=== PATIENT | female | born 1980 | race Caucasian/White ===

== ENCOUNTER 2020-02-26 08:44 | Outpatient (REF) | payer OTHER, SELFPAY ==
--- NOTE | 2020-02-26 08:47 | MM_ITS ---
EXAMINATION: MM BREAST DIAGNOSTIC DIGITAL BREAST TOMOSYNTHESIS, BILATERAL CLINICAL INFORMATION: Screening right breast study. Left breast pain. The lifetime risk of breast cancer based on the Tyrer-Cuzick Model is 11.2%. COMPARISON: Mammography: 06/07/2010 TECHNIQUE: Digital breast tomosynthesis is performed in both the craniocaudal and mediolateral oblique views along with computer-aided detection (CAD). Synthesized 2D images are generated from the tomosynthesis. FINDINGS: The breasts are extremely dense, which lowers the sensitivity of mammography (ACR BI-RADS breast composition Category d). Within the deep central region of the left breast on craniocaudal view, there is a circumscribed density measuring approximately 7 mm in diameter 6 cm from the nipple. Within the right breast just superior to nipple line, there is a 7 mm circumscribed density approximately 4 cm from the nipple. On craniocaudal view, 2 densities are noted, 1 centrally approximately 3 cm from the nipple and the other medially approximately 5 cm from nipple. Results are provided to the patient at time of visit by the technologist. MM/MM tomosynthesis diagnostic BI IMPRESSION: 1. Bilateral breast densities for which further evaluation with spot compression views recommended. 2. Ultrasound has been scheduled already for pain in the left breast for which the patient will be returning as well. ASSESSMENT: BI-RADS 0: Incomplete - Need Additional Imaging Evaluation RECOMMENDATION: Bilateral spot compression views and ultrasound as needed. This patient's information was entered into a reminder system with a target due date for their next mammogram.
== END 2020-02-26 08:45 | disposition home or self-care (01) ==
LOC: HO.MAMMO 08:44
PROVIDERS: Visit Provider Internal Medicine
DX: N64.4 Mastodynia (principal); Z12.39 Encounter for other screening for malignant neoplasm of breast
CPT/HCPCS: 77062; 77066

== ENCOUNTER 2020-03-03 12:42 | Outpatient (REF) | payer OTHER, SELFPAY ==
--- NOTE | 2020-03-03 | US_ITS ---
EXAMINATION: US DIAGNOSTIC ULTRASOUND BREAST, RIGHT CLINICAL INFORMATION: Two densities on mammography. COMPARISON: 02/26/2020 and studies dating back to 06/07/2010. TECHNIQUE: Ultrasound of the breast is performed with real-time colbert scale imaging and color Doppler. FINDINGS: Right breast ultrasound demonstrates a mildly lobulated mainly complex cyst measuring 7 x 6 x 8 mm in size 12 o'clock position 4 cm from the nipple. No distal sound shadowing identified. There is distal sound enhancement. At the 5 o'clock position approximately 5 cm from nipple there is what appears to be either complex cyst or a few adjacent cysts measuring 4 x 4 x 5 mm in size with some increased through sound transmission and no distal sound shadowing. A few other scattered small cysts are present. Results are discussed with the patient at time of visit. US/US breast RT limited IMPRESSION: Bilateral breast densities with 2 on the right corresponding to a mildly complex cyst for which 6 month follow-up ultrasound is recommended. Left breast density is likely related to a small complex cyst. 6 month follow-up left breast mammogram is suggested. ASSESSMENT: BI-RADS 3: Probably Benign. RECOMMENDATION: Diagnostic mammography in 6 months of the left breast and right breast follow-up ultrasound. This patient's information was entered into a reminder system with a target due date for their next mammogram.
--- NOTE | 2020-03-03 12:48 | US_ITS ---
EXAMINATION: US DIAGNOSTIC ULTRASOUND BREAST, LEFT CLINICAL INFORMATION: Mastodynia and density. COMPARISON: 02/26/2020 and studies dating back to 06/07/2010. TECHNIQUE: Ultrasound of the breast is performed with real-time colbert scale imaging and color Doppler. FINDINGS: The left breast ultrasound demonstrates a 4 x 3 x 2 mm minimally complex cyst without internal blood flow and without distal sound shadowing at 1 o'clock position 6 cm from nipple. No suspicious left breast cystic or solid mass is appreciated. No suspicious region of abnormal distal sound shadowing. Results are discussed with the patient at time of visit. US/US breast LT limited IMPRESSION: Bilateral breast densities with 2 on the right corresponding to a mildly complex cyst for which 6 month follow-up ultrasound is recommended. Left breast density is likely related to a small complex cyst. 6 month follow-up left breast mammogram is suggested. ASSESSMENT: BI-RADS 3: Probably Benign. RECOMMENDATION: Diagnostic mammography in 6 months of the left breast and right breast follow-up ultrasound. This patient's information was entered into a reminder system with a target due date for their next mammogram.
--- NOTE | 2020-03-03 12:49 | MM_ITS ---
EXAMINATION: MM DIAGNOSTIC DIGITAL BREAST TOMOSYNTHESIS, BILATERAL CLINICAL INFORMATION: Bilateral densities, 2 on the right and one on the left COMPARISON: Mammography: 02/26/2020 and studies dating back to 06/07/2010 TECHNIQUE: Digital breast tomosynthesis is performed. 2D images are generated from the tomosynthesis. The following views are obtained: Full-field craniocaudal view as well as spot compression films of the right breast in craniocaudal and mediolateral oblique projections and of the left breast in craniocaudal projection. Bilateral breast ultrasound was also performed. FINDINGS: The breasts are heterogeneously dense, which may obscure small masses (ACR BI-RADS breast composition Category c). Additional imaging demonstrates persistence of 2 right breast partially circumscribed lesions, one at approximately 12 o'clock position measuring 1 cm in maximum length and the other within the inferior medial aspect of the right breast measuring approximately 6 mm in diameter. Within the left breast there is partial effacement of the density within the deep superior aspect at approximately 12 o'clock position. Right breast ultrasound demonstrates a mildly lobulated mainly complex cyst measuring 7 x 6 x 8 mm in size, 12 o'clock position, 4 cm from the nipple. No distal sound shadowing identified. There is distal sound enhancement. At the 5 o'clock position approximately 5 cm from nipple, there is what appears be either complex cyst or a few adjacent cysts measuring 4 x 4 x 5 mm in size with some increased through sound transmission and no distal sound shadowing. A few other scattered small cysts are present. Left breast ultrasound demonstrate a 4 x 3 x 2 mm minimally complex cyst without internal blood flow and without distal sound shadowing. No suspicious left breast mass is appreciated. Results are discussed with the patient at time of visit. MM/MM tomosynthesis added view BI IMPRESSION: Bilateral breast densities with 2 on the right corresponding to a mildly complex cysts for which 6 month follow-up ultrasound is recommended. Left breast density is likely related to a small complex cyst. 6 month follow-up left breast mammogram is suggested. ASSESSMENT: BI-RADS 3: Probably Benign RECOMMENDATION: Diagnostic mammography in 6 months of the left breast and right breast follow-up ultrasound. This patient's information was entered into a reminder system with a target due date for their next mammogram.
== END 2020-03-03 12:43 | disposition home or self-care (01) ==
LOC: HO.MAMMO 12:42
PROVIDERS: Visit Provider Internal Medicine
DX: N64.4 Mastodynia (principal); R92.2 Inconclusive mammogram
CPT/HCPCS: 76642; 77062; 78016

== ENCOUNTER 2020-03-29 08:48 | Outpatient (REF) | payer OTHER, SELFPAY ==
--- NOTE | 2020-03-29 08:54 | XR_ITS ---
EXAMINATION: XR CHEST CLINICAL INFORMATION: Preemployment COMPARISON: Previous chest x-rays most recent August 2019 TECHNIQUE: 2 views of the chest were obtained. FINDINGS: No significant abnormality is noted involving the heart, lungs, mediastinum, bony thorax or soft tissues. XR/XR chest 2V IMPRESSION: Unremarkable examination.
== END 2020-03-29 08:49 | disposition home or self-care (01) ==
LOC: HO.XRAY 08:48
PROVIDERS: Visit Provider Internal Medicine
DX: Z02.1 Encounter for pre-employment examination (principal)
CPT/HCPCS: 71046

== ENCOUNTER 2020-04-17 12:31 | Emergency (ER) | payer OTHER, SELFPAY ==
[2020-04-17 12:39] VITALS: BP 138/91; PULSE 107; RESP 18; TEMP 37.1; O2SAT 100; BMI 23.2
--- NOTE | 2020-04-17 12:42 | ED.URI ---
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 No fever, chest pain or shortness of breath. No known sick contacts. MD elicited complaint: other (Loss of taste/smell) Onset (ago): hour(s) Severity: mild Relieving factors: nothing Treatments prior to arrival: none Related Data Previous Rx's Medication Instructions Recorded mupirocin 2 % topical ointment 1 applic TOPICAL BID #15 g 02/20/20 Allergies Allergy/AdvReac Type Severity Reaction Status Date / Time droperidol [From Inapsine] Allergy Severe ITCHING,SEI Verified 04/17/20 12:44 ZURE seafood Allergy Unknown ithcy Verified 04/17/20 12:44 Review of Systems Review of Systems: Constitutional: No Weight loss, No Fever, No Chills, No Night Sweats, No Fatigue, No Malaise ENT/Mouth: No Hearing loss, No Ear Pain, No Nasal Congestion, No Sinus Pain, No Hoarseness, No sore throat, No Rhinorrhea, No Swallowing Difficulty Eyes: No Eye Pain, No Swelling, No Redness, No Foreign Body, No Discharge, No Vision Changes Cardiovascular: No Chest Pain, No SOB, No Dyspnea on Exertion, No Orthopnea, No Edema, No Palpitations Respiratory: No Cough, No Sputum, No Wheezing, No Smoke Exposure, No Dyspnea Gastrointestinal: No Nausea, No Vomiting, No Diarrhea, No Constipation, No abdominal Pain, No Hematochezia, No Melena Genitourinary: no irregular bleeding, No Dysuria, No Urinary Frequency, No Hematuria, No Urinary Incontinence, No Urgency, No Flank Pain, No Urinary Flow Changes Musculoskeletal: No joint pain, No Myalgias, No Joint Swelling Skin: No Skin Lesions, No rash Neuro: No Weakness, No Numbness, No Paresthesias, No Loss of Consciousness, No Dizziness, No Headache Psych: No Social Issues Heme/Lymph: No Bruising, No Bleeding,No Lymphadenopathy Endocrine: No Polyuria, No Polydipsia, No Temperature Intolerance Yes all other systems are reviewed and are negative PMFSH Past Medical History Surgical History History of tubal ligation Family History Family History (Updated 02/19/20 @ 09:34 by Shelly Dodd Karla) Father Medical history unknown Mother Hypertension CVD (cardiovascular disease) Brother Brain cancer Maternal Aunt Myocardial infarction Social History Social History Advance Directives: No Advance Directives Information Provided: No Physical Exam Vital Signs: Vital Signs: Last Vital Signs Temp 98.7 F 04/17/20 12:39 Pulse 107 H 04/17/20 12:39 Resp 18 04/17/20 12:39 BP 138/91 H 04/17/20 12:39 Pulse Ox 100 04/17/20 12:39 Body Mass Index 23.2 Course Course Course Narrative: Well nontoxic appearing, hemodynamically stable. Afebrile/not tachy. Requesting COVID-19 test which will be done will be discharged with CDC/state guidelines, return follow-up precautions clearly provided. 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 Discharge Plan Discharge Clinical Impression: Viral infection Patient Disposition: Home, Self-Care Instructions: Viral Syndrome (ED) Additional Instructions: Based on your symptoms and history we have sent a COVID-19. Although your RESULT IS PENDING at this time. RESULTS should return within 72 hours. At this time you will be contacted with either NEGATIVE OR POSITIVE results. -Please wait until we contact you for your results. At this time you will be okay for discharge. Please plan for self quarantine for up to 14 days. Do not expose yourself to others. You may not go to work. If testing does come back negative you may return to activities as long as you are no longer having any symptoms for at least 3 days. Please continue to follow cold instructions and wash your hands frequently. You may take Tylenol as directed on the bottle for pain or fever. Patient seen in the emergency department on 10/24/2019 and should be excused from work until negative test results AND until 72 hours without any symptoms AND at least 10 days have passed since symptoms first appeared or since last exposure to COVID-19 positive patient CDC Guidelines for home isolation: - Stay away from others - WEAR A MASK if you are sick AND STAY HOME - Cover your mouth and nose with a tissue when you cough or sneeze. Dispose of tissues in a lined trash can and wash your hands immediately with soap and water for at least 20 seconds. If soap and water are not available, clean hands with alcohol-based hand tube operator that contains at least 60% alcohol. - Clean your hands often with soap and water for at least 20 seconds - Avoid touching your eyes, nose and mouth with unwashed hands - Do not share dishes, drinking glasses, cups, eating utensils, towels, or bedding with other people in your home. After using these items, wash them thoroughly with soap and water or put in the blocker and cutter contact lens. - Clean high-touch surfaces in your isolation area ( sick room and bathroom) every day; let a caregiver clean and disinfect high-touch surfaces in other areas of the home. Clean the area or item with soap and water or another detergent if it is dirty. Then, use a household disinfectant. - Limit contact with pets and animals: If you must care for a pet, wash your hands before and after interacting with them Prescriptions: No Action mupirocin 2 % ointment 1 applic topical BID Qty: 15 RF: 0 Referrals: Jelly Baig MD [Primary Care Provider] - 2 weeks (Phone visit ) Interventions: ED Discharge Assessment Last Done: 04/17/20 12:49 Discharge Date/Time: 04/17/20 12:50
== END 2020-04-17 12:50 | disposition home or self-care (01) ==
PROVIDERS: Nurse Practitioner Primary Care; Emergency Provider Emergency Medicine; PCP Internal Medicine
DX: B34.9 Viral infection, unspecified (principal); R43.8 Other disturbances of smell and taste; Z20.828 Contact with and (suspected) exposure to other viral communicable diseases
CPT/HCPCS: 99283; U0003

== ENCOUNTER 2020-05-04 11:32 | Outpatient (REF) | payer OTHER, SELFPAY | END 2020-05-04 11:33 | disposition home or self-care (01) | LOC: HO.LAB 11:32 | PROVIDERS: PCP Internal Medicine; Visit Provider Internal Medicine | DX: Z20.822 Contact with and (suspected) exposure to COVID-19 (principal) | CPT/HCPCS: 36415; C9803; U0003 ==

== ENCOUNTER 2020-07-07 08:09 | Emergency (ER) | payer OTHER, SELFPAY ==
--- NOTE | ~2020-07-07 | US_ITS ---
EXAMINATION: ULTRASOUND PELVIS COMPLETE, DOPPLER EXAM. CLINICAL INFORMATION: Lower abdominal pain, worse in the left lower quadrant COMPARISON: None TECHNIQUE: Transabdominal and transvaginal ultrasound the pelvis was performed. FINDINGS: The uterus is anteverted measuring 8.5 cm in length, 5.2 cm in AP and 5.1 cm in transverse dimension. The endometrial thickness is 1.0 cm. There are 2 hypoechoic areas. 1. Lesion in the right fundus measuring 1.9 x 1.5 x 1.7 cm. 2. Lesion in upper posterior body of uterus measuring 1.0 x 0.7 x 0.9 cm. Small nabothian cysts are seen in the cervix. Right ovary measures 2.9 x 1.1 x 2.2 cm and volume 3.7 mL. Left ovary measures 2.2 x 0.9 x 2.2 cm and volume 2.3 mL. There is no free fluid in the cul-de-sac. US/US pelvic ovarian doppler IMPRESSION: 2 small uterine fibroids. Small nabothian cysts in the cervix. The ovaries are unremarkable.
--- NOTE | ~2020-07-07 | US_ITS ---
EXAMINATION: ULTRASOUND PELVIS COMPLETE, DOPPLER EXAM. CLINICAL INFORMATION: Lower abdominal pain, worse in the left lower quadrant COMPARISON: None TECHNIQUE: Transabdominal and transvaginal ultrasound the pelvis was performed. FINDINGS: The uterus is anteverted measuring 8.5 cm in length, 5.2 cm in AP and 5.1 cm in transverse dimension. The endometrial thickness is 1.0 cm. There are 2 hypoechoic areas. 1. Lesion in the right fundus measuring 1.9 x 1.5 x 1.7 cm. 2. Lesion in upper posterior body of uterus measuring 1.0 x 0.7 x 0.9 cm. Small nabothian cysts are seen in the cervix. Right ovary measures 2.9 x 1.1 x 2.2 cm and volume 3.7 mL. Left ovary measures 2.2 x 0.9 x 2.2 cm and volume 2.3 mL. There is no free fluid in the cul-de-sac. US/US transvaginal IMPRESSION: 2 small uterine fibroids. Small nabothian cysts in the cervix. The ovaries are unremarkable.
--- NOTE | ~2020-07-07 | US_ITS ---
EXAMINATION: ULTRASOUND PELVIS COMPLETE, DOPPLER EXAM. CLINICAL INFORMATION: Lower abdominal pain, worse in the left lower quadrant COMPARISON: None TECHNIQUE: Transabdominal and transvaginal ultrasound the pelvis was performed. FINDINGS: The uterus is anteverted measuring 8.5 cm in length, 5.2 cm in AP and 5.1 cm in transverse dimension. The endometrial thickness is 1.0 cm. There are 2 hypoechoic areas. 1. Lesion in the right fundus measuring 1.9 x 1.5 x 1.7 cm. 2. Lesion in upper posterior body of uterus measuring 1.0 x 0.7 x 0.9 cm. Small nabothian cysts are seen in the cervix. Right ovary measures 2.9 x 1.1 x 2.2 cm and volume 3.7 mL. Left ovary measures 2.2 x 0.9 x 2.2 cm and volume 2.3 mL. There is no free fluid in the cul-de-sac. US/US pelvic complete IMPRESSION: 2 small uterine fibroids. Small nabothian cysts in the cervix. The ovaries are unremarkable.
--- NOTE | ~2020-07-07 | CT_ITS ---
EXAMINATION: CT ABDOMEN AND PELVIS WITH CONTRAST CLINICAL INFORMATION: Lower abdominal pain with associated nausea. COMPARISON: CT abdomen and pelvis 02/06/2018 TECHNIQUE: Multidetector volumetric images were obtained from the superior aspect of the liver through the pubic symphysis following administration 85 mL of Omnipaque 350 intravenous contrast. Sagittal and coronal reformatted images were obtained on the technologist's workstation. Oral contrast: No. This CT examination was performed using dose optimization techniques as appropriate, variously including the following: *Automated exposure control *Adjustment of mA and/or kV according to patient size (this includes techniques or standardized protocols for targeted exams where dose is matched to indication/reason for exam; i.e. extremities or head) *Use of iterative reconstruction technique DLP: 350 mGy-cm FINDINGS: LUNG BASES: The visualized lung bases are unremarkable. LIVER, GALLBLADDER, AND BILIARY TREE: The liver is normal in size, shape, and attenuation. No focal hepatic lesion or biliary ductal dilatation is present. The gallbladder is unremarkable with no evidence of radiopaque gallstones, gallbladder wall thickening, or obvious pericholecystic inflammatory changes. PANCREAS: Unremarkable. SPLEEN: Unremarkable. ADRENAL GLANDS: Unremarkable. KIDNEYS AND URETERS: The kidneys are normal in size, shape, and attenuation. No hydronephrosis, hydroureter, or calculi seen. No perinephric stranding. BLADDER: Unremarkable. GASTROINTESTINAL TRACT: There is scattered stool and gas throughout the colon without any significant distention. The small bowel loops are normal caliber. Appendix is normal caliber. No inflammatory process seen in the abdomen. ABDOMINAL WALL: No significant hernia is appreciated. LYMPH NODES: No abnormal lymph nodes seen. VASCULAR: Unremarkable. PELVIC VISCERA: There is a thickened cervix almost appearing mass-like measuring 3.4 x 3.5 cm. Underlying cervical polyp or low-lying fibroid cannot be excluded. No abnormality was seen on the ultrasound performed earlier today. The cervix appears same size as 2018 exam. The uterus is mildly bulky likely secondary to fibroid disease. There is bilateral tubal ligation chico in place. There is no free fluid. OSSEOUS STRUCTURES: Unremarkable. CT/CT abdomen pelvis w con IMPRESSION: Slightly bulky uterus likely from fibroid disease. The cervix is prominent but similar to previous study 2018. No abnormality was seen on the ultrasound pelvis exam performed earlier today. Mild constipation.
[2020-07-07 08:26] VITALS: PULSE 114; RESP 16; TEMP 36.8; O2SAT 98; BMI 24.0
--- NOTE | 2020-07-07 08:30 | PC.NURSE ---
pt presents to the ED with nausea and abdominal pain since 6pm last night (07/06). pt states she has not been able to eat since last night due to pain and nausea. pt denies vomiting or diarrhea but states she has had bowel movements both last night and this morning. states her bowel movements were normal in color and consistency, denies having pain during bowel movements. lung sounds clear bilaterally in all hook, respirations even and non-labored. pt denies feeling short of breath and denies pain with respirations. heart sounds normal and rate is even. bowel sounds active x4, abdomen is soft, non-tender, no distension or discoloration noted. aware.
[2020-07-07 10:10] LABS: MANUAL DIFF FLAG NO
[2020-07-07 10:12] LABS: Basophils Percent Auto 0.2 % (0-2); Eosinophils Percent Auto 0.3 % (0-4); Hematocrit 39.2 % (37-47); Hemoglobin 12.5 g/dl (12.0-16.0); Imm Gran Abs Auto 0.03 X10*3/uL (0.00-0.03); Imm Gran Pct Auto 0.3 % (0.0-0.4); Lymphocytes Absolute Auto 1.4 X10*3/uL (1.2-4.9); Lymphocytes Percent Auto 15.6 % (20-40); Mean Corpuscular HGB Conc 31.9 g/dl (31.0-35.0); Mean Corpuscular Hemoglobin 27.2 pg (27.0-33.0); Mean Corpuscular Volume 85.2 fL (80-98); Mean Platelet Volume 10.1 fL (9.4-12.3); Monocytes Absolute Auto 0.8 X10*3/uL (0.1-1.2); Monocytes Percent Auto 8.7 % (2-11); Neutrophils Absolute Auto 6.8 X10*3/uL (2.0-8.3); Neutrophils Percent Auto 74.9 % (45-73); Platelet Count 403 X10*3/uL (160-400); Red Cell Distribution Width 13.5 % (11.0-16.0); White Blood Count 9.1 X10*3/uL (4.8-10.8)
[2020-07-07 10:13] LABS: Glucose Urine UA NEG (NEG); Leukocyte Esterase Urine TRACE (NEG); Nitrite Urine NEG (NEG); UACC Culture Trigger YES; Urine Blood NEG (NEG); Urine Ketones NEG (NEG); Urine Protein NEG (NEG-TRACE)
[2020-07-07 10:15] LABS: Appearance Urine CLEAR; Color Urine YELLOW
[2020-07-07 10:16] LABS: UPreg QC Valid YES; Urine Pregnancy NEGATIVE (NEGATIVE)
[2020-07-07 10:17] LABS: INTERNATIONAL NORM RATIO 1.1 (0.9-1.1); Prothrombin Time 13.1 SEC (10.8-13.0)
[2020-07-07 10:19] LABS: Bacteria Urine 3+ /LPF; RBC Urine 0-2 /HPF (0); Squamous Epithelial Cell Urine 4+ /LPF
--- NOTE | 2020-07-07 10:34 | PC.NURSE ---
pt currently in ultrasound
[2020-07-07 10:53] LABS: Influenza A PCR NEGATIVE (Negative); Influenza B PCR NEGATIVE (Negative); Resp Syncy Virus RNA Qual PCR NEGATIVE (Negative); SARS COV2 PCR INHOUSE NEGATIVE (Negative)
--- NOTE | 2020-07-07 11:02 | ED.ABDPAIN ---
HPI - Abdominal Pain General Chief Complaint: Abdominal Pain Stated Complaint: abd pain, nausea Time Seen by Provider: 07/07/20 09:43 Source: patient Mode of arrival: ambulatory Limitations: no limitations History of Present Illness HPI narrative: 40-year-old female with a past medical history of complex ovarian cyst and a tubal ligation who was previously positive for COVID-19 on 04/17/2020 presenting to the ED with complaints of lower abdominal pain worse on the left lower quadrant with associated nausea since last night. Reports she is unable to eat anything due to the nausea. Denies any fevers, vomiting, upper abdominal pain or radiation of the abdominal pain, back pain, constipation, diarrhea, bloody stools or dark stools, dysuria, vaginal discharge, increased urgency/frequency or hematuria. Reports she had a normal bowel movement this morning. Denies recent travel or sick contacts. Denied bad food exposure. MD elicited complaint: abdominal pain Pertinent past history: none Onset (ago): day(s) (Since 18:00 last night) Pain Consistency: constant Location: RLQ, LLQ and suprapubic Severity: moderate Quality: aching Radiation: none Migration to: no migration Exacerbating factors: nothing Relieving factors: nothing Associated symptoms: nausea Related Data Hx Last Menstrual Period: Approximately 1 month ago per patient Patient : No Home Medications Medication Instructions Recorded Confirmed ascorbate calcium (vitamin C) 500 500 mg PO DAILY 06/07/20 06/07/20 mg tablet Previous Rx's Medication Instructions Recorded mupirocin 2 % topical ointment 1 applic TOPICAL BID #15 g 02/20/20 docusate sodium [Colace] 100 mg PO BID PRN #14 cap 07/07/20 ibuprofen 800 mg PO Q8H PRN #14 tab 07/07/20 nitrofurantoin monohyd/m-cryst 100 mg PO BID 7 Days #14 cap 07/07/20 [Macrobid] ondansetron HCl [Zofran] 4 mg PO Q8H PRN #14 tab 07/07/20 phenazopyridine [Pyridium] 100 mg PO TID PRN #6 tab 07/07/20 Allergies Allergy/AdvReac Type Severity Reaction Status Date / Time droperidol [From Inapsine] Allergy Severe ITCHING,SEI Verified 04/17/20 12:44 ZURE seafood Allergy Unknown ithcy Verified 04/17/20 12:44 Review of Systems Review of Systems Constitutional : No Weight loss, No Fever, No Chills, No Night Sweats, No Fatigue, No Malaise ENT/Mouth: No ear pain, No sore throat, No Difficulty swallowing Cardiovascular : No Chest Pain, No SOB Respiratory : No Cough, No Sputum, No Wheezing, No Dyspnea Gastrointestinal : + Nausea, + Abdominal pain, No Vomiting, No Diarrhea, No Hematochezia, No Melena Genitourinary : No irregular bleeding, No Dysuria, No Urinary Frequency, No Hematuria,No Urinary Incontinence, No Urgency, No Flank Pain Musculoskeletal : No joint pain, No Myalgias, No Joint Swelling Skin : No Skin Lesions, No rash Neuro : No Weakness, No Numbness, No Paresthesias, No Loss of Consciousness, NoDizziness, No Headache Psych : No Social Issues, Heme/Lymph: No Bruising, No Bleeding,No Lymphadenopathy Endocrine : No Polyuria, No Polydipsia, No Temperature Intolerance Yes all other systems are reviewed and are negative Physical Exam Vital Signs: Vital Signs: Last Vital Signs Temp 98.1 F 07/07/20 12:26 Pulse 90 07/07/20 12:26 Resp 16 07/07/20 12:26 BP 123/83 07/07/20 12:26 Pulse Ox 100 07/07/20 12:26 Body Mass Index 24.0 vital signs have been reviewed as normal and appeared to be correct. Blood pressure normal. Heart rate tachycardic at 01:14. Respiration rate normal. Temperature normal. Oxygen saturation normal. Appearance: Alert. Oriented X3. No acute distress. Head: Normal external exam. Normocephalic. Eyes: PERRLA. EOMI. Conjunctiva and sclera normal. Eyelids normal. ENT: Pharynx normal. Uvula midline. Moist mucous membranes. Neck: Normal inspection. Neck supple. FROM. No adenopathy. No meningeal signs. CVS: Normal heart rate and rhythm. Heart sound normal. No murmurs noted. Pulses normal throughout. Respiratory: No respiratory distress. Painless inspiration. Breath sounds normal. No wheezes/rales/rhonchi noted. Chest nontender. No accessory muscle usage noted or decreased air movement noted. Abdomen: Soft and and mild tenderness to palpation to bilateral lower quadrants/suprapubic area worse on the left lower quadrant. Nondistended. No guarding. No rigidity. Bowel sounds normal in all 4 quadrants. No distention noted. No organomegaly noted. No visible injury noted. No rebound tenderness. Negative Rovsing sign. Negative obturator's sign. Negative psoas sign. Negative Wellington sign. Back: No CVA tenderness. Full range of motion noted. Skin: Skin warm and dry. Normal skin color. Normal skin turgor. No rashes/lesions/lacerations noted. Extremities: Extremities exhibit normal range of motion. Extremities nontender. Neuro: Oriented X 3. No motor deficit. No sensory deficit. Reflexes normal. Course Course Course Narrative: 9:50am - 40-year-old female with a past medical history of complex ovarian cyst and a tubal ligation who was previously positive for COVID-19 on 04/17/2020 presenting to the ED with complaints of lower abdominal pain worse on the left lower quadrant with associated nausea since last night. - on exam patient is alert and oriented x3. Not in any acute distress. Mildly tachycardic at 01:14 otherwise all other vitals are within normal limits. Has mild tenderness to palpation to bilateral lower quadrants and suprapubic area no rebound tenderness. Not consistent with acute abdomen. No CVA tenderness. - concern for appendicitis versus diverticulitis versus constipation versus ovarian cyst versus ovarian torsion - Plan: Labs, UA, UHCG, pelvic/ovarian/transvaginal ultrasound and a CT scan of abdomen and pelvis with IV contrast, SARs/flu/RSV swab. Provide a L of IV fluids with 30 mg of Toradol and 4 mg of Zofran and re-evaluate. Reevaluation(s) Reevaluation #1: - labs all within normal limits. UA with a trace of leukocytes otherwise no other signs of UTI. UHCG negative for . SARs/flu/RSV negative. - transvaginal ultrasound revealed 2 small uterine fibroids with Small nabothian cysts in the cervix. The ovaries are unremarkable. - CT scan of abdomen and pelvis with IV contrast still pending at this time. Will re-evaluate once they are back. Time: 12:09 Reevaluation #2: - CT scan of abdomen and pelvis with IV contrast revealed fibroid disease and mild constipation otherwise no other acute processes noted. - therefore will treat for UTI along with symptomatic Loulou and instructions return if any new or worsening symptoms to follow up with primary care provider. Patient is in agrees the plan. Time: 12:34 MDM - Abdominal Pain Medical Records Attestation: I reviewed the patient's medical records. Lab Data Attestation: I reviewed the patient's lab results. Result diagrams: 07/07/20 10:03 07/07/20 10:03 Labs: Lab Results 07/07/20 07/07/20 07/07/20 Range/Units 09:59 09:59 09:59 WBC (4.8-10.8) X10*3/uL RBC (4.20-5.50) X10*6/uL Hgb (12.0-16.0) g/dl Hct (37-47) % MCV (80-98) fL MCH (27.0-33.0) pg MCHC (31.0-35.0) g/dl RDW (11.0-16.0) % Plt Count (160-400) X10*3/uL MPV (9.4-12.3) fL Immature Gran % (Auto) (0.0-0.4) % Neut % (Auto) (45-73) % Lymph % (Auto) (20-40) % Haines % (Auto) (2-11) % Eos % (Auto) (0-4) % Baso % (Auto) (0-2) % Lymph # (Auto) (1.2-4.9) X10*3/uL Haines # (Auto) (0.1-1.2) X10*3/uL Eos # (Auto) (0.0-0.4) X10*3/uL Baso # (Auto) (0.0-0.2) X10*3/uL Abs Immat Gran (auto) (0.00-0.03) X10*3/uL Absolute Neuts (auto) (2.0-8.3) X10*3/uL Absolute Nucleated RBC (0.0-0.012) X10*3/uL Nucleated RBC % (auto) (0.0-0.2) /100WBC PT (10.8-13.0) SEC INR (0.9-1.1) Sodium (135-145) mmol/L Potassium (3.3-5.1) mmol/L Chloride (96-108) mmol/L Carbon Dioxide (22-29) mmol/L Anion Gap (12-20) BUN (9-16) mg/dL Creatinine (0.5-1.4) mg/dL Estim Creat Clear Calc Estimated GFR Random Glucose (60-115) mg/dL Calcium (8.4-10.2) mg/dL Magnesium (1.6-2.6) mg/dL Total Bilirubin (0.0-1.0) mg/dL Direct Bilirubin (0.0-0.5) mg/dL AST (5-31) U/L ALT (0-31) U/L Alkaline Phosphatase (39-117) U/L Total Protein (6.5-8.0) g/dL Albumin (3.5-5.0) g/dL Urine Color YELLOW Urine Appearance CLEAR Urine pH 7.0 (5.0-8.0) Ur Specific [place] 1.010 (1.005-1.025) Urine Protein NEG (NEG-TRACE) MG/DL Urine Glucose (UA) NEG (NEG) MG/DL Urine Ketones NEG (NEG) MG/DL Urine Blood NEG (NEG) Urine Nitrite NEG (NEG) Ur Leukocyte Esterase TRACE H (NEG) Urine RBC 0-2 (0) /HPF Urine WBC 1-4 (0-4) /HPF Ur Squamous Epith Cells 4+ /LPF Urine Bacteria 3+ /LPF Urine Test NEGATIVE (NEGATIVE) Coronavirus (PCR) NEGATIVE (Negative) Influenza Type A (PCR) NEGATIVE (Negative) Influenza Type B (PCR) NEGATIVE (Negative) RSV RNA Qual (PCR) NEGATIVE (Negative) 07/07/20 07/07/20 07/07/20 Range/Units 10:03 10:03 10:03 WBC 9.1 (4.8-10.8) X10*3/uL RBC 4.60 (4.20-5.50) X10*6/uL Hgb 12.5 (12.0-16.0) g/dl Hct 39.2 (37-47) % MCV 85.2 (80-98) fL MCH 27.2 (27.0-33.0) pg MCHC 31.9 (31.0-35.0) g/dl RDW 13.5 (11.0-16.0) % Plt Count 403 H (160-400) X10*3/uL MPV 10.1 (9.4-12.3) fL Immature Gran % (Auto) 0.3 (0.0-0.4) % Neut % (Auto) 74.9 H (45-73) % Lymph % (Auto) 15.6 L (20-40) % Haines % (Auto) 8.7 (2-11) % Eos % (Auto) 0.3 (0-4) % Baso % (Auto) 0.2 (0-2) % Lymph # (Auto) 1.4 (1.2-4.9) X10*3/uL Haines # (Auto) 0.8 (0.1-1.2) X10*3/uL Eos # (Auto) 0.0 (0.0-0.4) X10*3/uL Baso # (Auto) 0.0 (0.0-0.2) X10*3/uL Abs Immat Gran (auto) 0.03 (0.00-0.03) X10*3/uL Absolute Neuts (auto) 6.8 (2.0-8.3) X10*3/uL Absolute Nucleated RBC 0.000 (0.0-0.012) X10*3/uL Nucleated RBC % (auto) 0.0 (0.0-0.2) /100WBC PT 13.1 H (10.8-13.0) SEC INR 1.1 (0.9-1.1) Sodium 138 (135-145) mmol/L Potassium 4.3 (3.3-5.1) mmol/L Chloride 105 (96-108) mmol/L Carbon Dioxide 24 (22-29) mmol/L Anion Gap 13 (12-20) BUN 7 L (9-16) mg/dL Creatinine 0.69 (0.5-1.4) mg/dL Estim Creat Clear Calc 76.8 Estimated GFR > 60 Random Glucose 93 (60-115) mg/dL Calcium 9.2 (8.4-10.2) mg/dL Magnesium 2.1 (1.6-2.6) mg/dL Total Bilirubin 0.4 (0.0-1.0) mg/dL Direct Bilirubin 0.2 (0.0-0.5) mg/dL AST 17 (5-31) U/L ALT 20 (0-31) U/L Alkaline Phosphatase 59 (39-117) U/L Total Protein 7.8 (6.5-8.0) g/dL Albumin 4.3 (3.5-5.0) g/dL Urine Color Urine Appearance Urine pH (5.0-8.0) Ur Specific [place] (1.005-1.025) Urine Protein (NEG-TRACE) MG/DL Urine Glucose (UA) (NEG) MG/DL Urine Ketones (NEG) MG/DL Urine Blood (NEG) Urine Nitrite (NEG) Ur Leukocyte Esterase (NEG) Urine RBC (0) /HPF Urine WBC (0-4) /HPF Ur Squamous Epith Cells /LPF Urine Bacteria /LPF Urine Test (NEGATIVE) Coronavirus (PCR) (Negative) Influenza Type A (PCR) (Negative) Influenza Type B (PCR) (Negative) RSV RNA Qual (PCR) (Negative) Imaging Data Transvaginal/pelvis/Doppler ultrasound: Attestation: I personally reviewed and interpreted this imaging study as follows: Radiologist's impression: FINDINGS: The uterus is anteverted measuring 8.5 cm in length, 5.2 cm in AP and 5.1 cm in transverse dimension. The endometrial thickness is 1.0 cm. There are 2 hypoechoic areas. 1. Lesion in the right fundus measuring 1.9 x 1.5 x 1.7 cm. 2. Lesion in upper posterior body of uterus measuring 1.0 x 0.7 x 0.9 cm. Small nabothian cysts are seen in the cervix. Right ovary measures 2.9 x 1.1 x 2.2 cm and volume 3.7 mL. Left ovary measures 2.2 x 0.9 x 2.2 cm and volume 2.3 mL. There is no free fluid in the cul-de-sac. US/US transvaginal IMPRESSION: 2 small uterine fibroids. Small nabothian cysts in the cervix. The ovaries are unremarkable. CT scan of abdomen pelvis with IV contrast: Attestation: I personally reviewed and interpreted this imaging study as follows: Radiologist's impression: FINDINGS: LUNG BASES: The visualized lung bases are unremarkable. LIVER, GALLBLADDER, AND BILIARY TREE: The liver is normal in size, shape, and attenuation. No focal hepatic lesion or biliary ductal dilatation is present. The gallbladder is unremarkable with no evidence of radiopaque gallstones, gallbladder wall thickening, or obvious pericholecystic inflammatory changes. PANCREAS: Unremarkable. SPLEEN: Unremarkable. ADRENAL GLANDS: Unremarkable. KIDNEYS AND URETERS: The kidneys are normal in size, shape, and attenuation. No hydronephrosis, hydroureter, or calculi seen. No perinephric stranding. BLADDER: Unremarkable. GASTROINTESTINAL TRACT: There is scattered stool and gas throughout the colon without any significant distention. The small bowel loops are normal caliber. Appendix is normal caliber. No inflammatory process seen in the abdomen. ABDOMINAL WALL: No significant hernia is appreciated. LYMPH NODES: No abnormal lymph nodes seen. VASCULAR: Unremarkable. PELVIC VISCERA: There is a thickened cervix almost appearing mass-like measuring 3.4 x 3.5 cm. Underlying cervical polyp or low-lying fibroid cannot be excluded. No abnormality was seen on the ultrasound performed earlier today. The cervix appears same size as 2018 exam. The uterus is mildly bulky likely secondary to fibroid disease. There is bilateral tubal ligation chico in place. There is no free fluid. OSSEOUS STRUCTURES: Unremarkable. CT/CT abdomen pelvis w con IMPRESSION: Slightly bulky uterus likely from fibroid disease. The cervix is prominent but similar to previous study 2018. No abnormality was seen on the ultrasound pelvis exam performed earlier today. Mild constipation. Discharge Plan Discharge Clinical Impression: UTI (urinary tract infection), Constipation, Fibroid, uterine, Nabothian follicles on cervix Patient Disposition: Home, Self-Care Instructions: Urinary Tract Infection in Women (ED) Prescriptions: New phenazopyridine [Pyridium] 100 mg tablet 100 mg PO TID PRN (Reason: pain) Qty: 6 RF: 0 nitrofurantoin monohyd/m-cryst [Macrobid] 100 mg capsule 100 mg PO BID 7 Days Qty: 14 RF: 0 docusate sodium [Colace] 100 mg capsule 100 mg PO BID PRN (Reason: Constipation) Qty: 14 RF: 0 ibuprofen 800 mg tablet 800 mg PO Q8H PRN (Reason: pain) Qty: 14 RF: 0 ondansetron HCl [Zofran] 4 mg tablet 4 mg PO Q8H PRN (Reason: nausea and vomiting) Qty: 14 RF: 0 No Action ascorbate calcium (vitamin C) 500 mg tablet 500 mg PO DAILY RF: 0 mupirocin 2 % ointment 1 applic topical BID Qty: 15 RF: 0 Referrals: Po,Jelly Manning MD [Primary Care Provider] - 2 days Stand Alone Forms: Work/School Release Print Language: [place] [facility] Past Medical History Attestation statement: The following information was validated with the patient. Medical History Alcohol abuse Allergic rhinitis Complex ovarian cyst Tobacco abuse Surgical History History of tubal ligation Hx Last Menstrual Period: Approximately 1 month ago per patient Family History Family History Father Medical history unknown Mother Hypertension CVD (cardiovascular disease) Brother Brain cancer Maternal Aunt Myocardial infarction Social History Social History Alcohol intake: never Smoking Status: Never smoker Use of substances other than those prescribed or required for medical reasons: No Advance Directives: No Advance Directives Information Provided: No
[2020-07-07] MEDS: 0.9 % Sodium Chloride 1,000 ML 999 ML IVCONT (11:03)
[2020-07-07 11:08] LABS: Alanine Aminotransferase 20 U/L (0-31); Albumin Level 4.3 g/dL (3.5-5.0); Alkaline Phosphatase 59 U/L (39-117); Anion Gap 13 (12-20); Aspartate Amino Transferase 17 U/L (5-31); Bilirubin Direct 0.2 mg/dL (0.0-0.5); Bilirubin Total 0.4 mg/dL (0.0-1.0); Blood Urea Nitrogen 7 mg/dL (9-16); Calcium 9.2 mg/dL (8.4-10.2); Carbon Dioxide 24 mmol/L (22-29); Chloride 105 mmol/L (96-108); Creatinine Clr Calc Pharmacy 76.8; Estimated Glomerular Filt Rate > 60; Glucose Random 93 mg/dL (60-115); Magnesium 2.1 mg/dL (1.6-2.6); Potassium 4.3 mmol/L (3.3-5.1); Sodium 138 mmol/L (135-145); Total Protein 7.8 g/dL (6.5-8.0)
[2020-07-07] MEDS: Ketorolac Tromethamine 15 MG/ML VIAL 30 MG IV (11:12)
[2020-07-07] MEDS: iohexoL 350 MG/ML 75 ML INFUS..BTL IV (11:34)
[2020-07-07] MEDS: ondansetron HCL 4 MG/2 ML VIAL IVPUSH (12:24)
[2020-07-07 12:26] VITALS: BP 123/83; PULSE 90; RESP 16; TEMP 36.7; O2SAT 100
== END 2020-07-07 12:45 | disposition home or self-care (01) ==
PROVIDERS: Physician Assistant Medical; Emergency Provider Emergency Medicine Emergency Medical Services; PCP Internal Medicine
DX: N39.0 Urinary tract infection, site not specified (principal); K59.00 Constipation, unspecified; D25.9 Leiomyoma of uterus, unspecified; N88.8 Other specified noninflammatory disorders of cervix uteri; F17.210 Nicotine dependence, cigarettes, uncomplicated; F10.10 Alcohol abuse, uncomplicated
CPT/HCPCS: 0241U; 36415; 74177; 76830; 76856; 80048; 80076; 81001; 81003; 81025; 83735; 85025; 85610; 87086; 93975; 96361; 96374; 96375; 99284; J1885; J2405; Q9967

== ENCOUNTER 2020-09-01 12:04 | Outpatient (REF) | payer OTHER, SELFPAY ==
--- NOTE | ~2020-09-01 | MM_ITS ---
EXAMINATION: MM DIAGNOSTIC DIGITAL BREAST TOMOSYNTHESIS, BILATERAL CLINICAL INFORMATION: Short interval six-month follow-up probable benign parenchymal asymmetry posterior central left breast and probable benign complicated cyst central 12:00 right breast. The lifetime risk of breast cancer based on the Tyrer-Cuzick Model is 8%. COMPARISON: Mammography: 03/03/2020, 02/26/2020 (BI-RADS 0, 06/07/2010; targeted bilateral breast ultrasound 03/03/2020. TECHNIQUE: Digital breast tomosynthesis is performed in both the craniocaudal and mediolateral oblique views along with computer-aided detection (CAD). Synthesized 2D images are generated from the tomosynthesis. Additional left CC view is performed. Patient was unable to stay for the targeted right breast ultrasound, to be rescheduled. FINDINGS: The breasts are heterogeneously dense, which may obscure small masses (ACR BI-RADS breast composition Category c). Left breast parenchymal pattern is similar to prior exams. There is no developing density or interval mass or architectural abnormality in the posterior central breast. Tomography shows mixture of fibroglandular and fatty tissue composition in the area of recent concern. Right breast shows stable nodule central 12:00 position. The smaller nodule 5:00 position is not demonstrated. There is no interval mass or architectural abnormality or developing density. Neither breast shows abnormal calcifications. The axilla and skin contours are unremarkable. Results are provided to the patient at time of visit by the technologist. Patient to reschedule plan short interval follow-up right breast ultrasound. MM/MM tomosynthesis diagnostic BI IMPRESSION: 1. Left: No significant changes. Left breast may be reassessed again at time of annual bilateral mammography, due in 6 months. 2. Right: No significant changes. Patient to reschedule targeted right breast ultrasound. ASSESSMENT: BI-RADS 0: Incomplete - Need Additional Imaging Evaluation RECOMMENDATION: 1. Targeted right breast ultrasound (to be rescheduled). 2. Diagnostic bilateral mammography, due in 6 months. This patient's information was entered into a reminder system with a target due date for their next mammogram.
== END 2020-09-01 12:05 | disposition home or self-care (01) ==
LOC: HO.MAMMO 12:04
PROVIDERS: PCP Internal Medicine; Visit Provider Internal Medicine
DX: R92.2 Inconclusive mammogram (principal)
CPT/HCPCS: 77062; 77066

== ENCOUNTER 2020-09-03 09:22 | Outpatient (REF) | payer OTHER, SELFPAY ==
--- NOTE | ~2020-09-03 | US_ITS ---
EXAMINATION: US DIAGNOSTIC ULTRASOUND BREAST, RIGHT CLINICAL INFORMATION: Short interval six-month follow-up probable benign complicated cyst central 12:00 right breast and 5:00 right breast. COMPARISON: Mammography 09/01/2020, 03/03/2020, 02/26/2020; targeted ultrasound right breast 03/03/2020. TECHNIQUE: Ultrasound right breast is targeted to the 12:00 and 5:00 regions using grayscale imaging and color Doppler without and with harmonics. FINDINGS: The cysts for follow-up 12:00 position measures approximately 1.0 x 0.8 x 0.5 cm. There is an focal peripheral indentations without wall thickening or internal septation. No solid component. There is increased through-transmission of sound and no associated color flow. This is considered benign. The smaller cyst at 5:00 position 5 cm from nipple represent a grouping of benign simple cysts composition in area of approximately 0.8 x 0.4 cm. There is no solid component. There is increased through-transmission of sound. No associated color flow. This is considered benign. Results are discussed with the patient at time of visit. Management plan is for diagnostic bilateral mammography at time of annual bilateral mammography, due in 6 months to reassess the previously described bilateral mammographic areas of interest. US/US breast RT limited IMPRESSION: 1. Benign simple cyst 12:00 position 1.0 x 0.8 x 0.5 cm. 2. Benign grouped microcysts 5:00 position 0.8 x 0.4 cm. ASSESSMENT: BI-RADS 3: Probably Benign (Comment: The ultrasound today is BI-RADS 2; A BI-RADS 3 assessment is made to incorporate the recent diagnostic mammography follow up plans). RECOMMENDATION: Diagnostic bilateral mammography at time of annual exam, due in 6 months. This patient's information was entered into a reminder system with a target due date for their next mammogram.
== END 2020-09-03 09:23 | disposition home or self-care (01) ==
LOC: HO.MAMMO 09:22
PROVIDERS: Visit Provider Internal Medicine
DX: R92.2 Inconclusive mammogram (principal); N60.01 Solitary cyst of right breast
CPT/HCPCS: 76642

== ENCOUNTER 2021-03-01 14:13 | Outpatient (REF) | payer OTHER, SELFPAY ==
--- NOTE | ~2021-03-01 | MM_ITS ---
EXAMINATION: MM DIAGNOSTIC DIGITAL BREAST TOMOSYNTHESIS, BILATERAL CLINICAL INFORMATION: Due for yearly. Probable benign bilateral parenchymal asymmetries. The lifetime risk of breast cancer based on the Tyrer-Cuzick Model is 10%. COMPARISON: Mammography: 09/01/2020, 03/03/2020, 02/26/2020, 06/07/2010; right breast ultrasound 09/03/2020, bilateral breast ultrasound 03/03/2020 TECHNIQUE: Digital breast tomosynthesis is performed in both the craniocaudal and mediolateral oblique views along with computer-aided detection (CAD). Synthesized 2D images are generated from the tomosynthesis. FINDINGS: The breasts are heterogeneously dense, which may obscure small masses (ACR BI-RADS breast composition Category c). There is inhomogeneous fine fibronodular parenchymal pattern. There is no developing density or interval mass or architectural abnormality. No significant changes from prior studies. The axilla and skin contours are unremarkable. Results are provided to the patient at time of visit by the technologist. MM/MM tomosynthesis diagnostic BI IMPRESSION: No significant changes from prior studies. No developing density. ASSESSMENT: BI-RADS 2: Benign RECOMMENDATION: Routine annual mammography screening. This patient's information was entered into a reminder system with a target due date for their next mammogram.
== END 2021-03-01 14:14 | disposition home or self-care (01) ==
LOC: HO.MAMMO 14:13
PROVIDERS: Visit Provider Internal Medicine
DX: N64.89 Other specified disorders of breast (principal); R92.2 Inconclusive mammogram
CPT/HCPCS: 77062; 77066

== ENCOUNTER 2021-04-06 08:15 | Emergency (ER) | payer OTHER, SELFPAY ==
[2021-04-06 08:50] VITALS: BP 140/82; PULSE 101; RESP 16; TEMP 36.2; O2SAT 99; BMI 22.6
--- NOTE | 2021-04-06 12:01 | ED_ITS ---
HPI - General Adult General Chief complaint: General Medical Stated complaint: rectal bleeding Time Seen by Provider: 04/06/21 11:04 Source: patient Mode of arrival: ambulatory Limitations: no limitations History of Present Illness HPI narrative: 41-year-old female who presents emergency department for evaluation of rectal bleeding. Patient states that she has had a hemorrhoid for a long period of time. She describes it as a small external bump that has been painful in the past but has never bled. She states she has been constipated for the past 2 days. She states that today she strained hard to move her bowels and then developed rectal bleeding. She states that the bleeding was bright red and she describes the amount as moderate. She did not notice any dark tarry stool or blood clots in her bowel movements. She denied abdominal pain. She fever, chills, chest pain, lightheadedness, shortness of breath, back pain. She states that she has never had any treatment for hemorrhoids and she has never had rectal bleeding before. There is no history of colon cancer in her family. Related Data Home Medications Medication Instructions Recorded Confirmed ascorbate calcium (vitamin C) 500 500 mg PO DAILY 06/07/20 06/07/20 mg tablet Previous Rx's Medication Instructions Recorded mupirocin 2 % topical ointment 1 applic TOPICAL BID #15 g 02/20/20 docusate sodium 100 mg capsule 100 mg PO BID PRN #14 cap 07/07/20 (Colace) ibuprofen 800 mg tablet 800 mg PO Q8H PRN #14 tab 07/07/20 nitrofurantoin 100 mg PO BID 7 Days #14 cap 07/07/20 monohydrate/macrocrystals 100 mg capsule (Macrobid) ondansetron HCl 4 mg tablet 4 mg PO Q8H PRN #14 tab 07/07/20 (Zofran) phenazopyridine 100 mg tablet 100 mg PO TID PRN #6 tab 07/07/20 (Pyridium) Allergies Allergy/AdvReac Type Severity Reaction Status Date / Time droperidol [From Inapsine] Allergy Severe ITCHING,SEI Verified 04/17/20 12:44 ZURE seafood Allergy Unknown ithcy Verified 04/17/20 12:44 Review of Systems Review of Systems: Yes all other systems are reviewed and are negative FOR[facility]LY [facility], [facility] N[facility]ative: Social history: She denies tobacco, alcohol and drug use. Medical History Alcohol abuse Allergic rhinitis Complex ovarian cyst Tobacco abuse Surgical History History of tubal ligation Family History Family History Father Medical history unknown Mother Hypertension CVD (cardiovascular disease) Brother Brain cancer Maternal Aunt Myocardial infarction Social History Social History Alcohol intake: never Advance Directives: No Advance Directives Information Provided: No Physical Exam Vital Signs: Vital Signs: Last Vital Signs Temp 97.2 F 04/06/21 08:50 Pulse 101 H 04/06/21 08:50 Resp 16 04/06/21 08:50 BP 140/82 H 04/06/21 08:50 Pulse Ox 99 04/06/21 08:50 BMI result Body Mass Index 22.6 Const: General: cooperative and no acute distress Orientation/consciousness: oriented to person and oriented to place Limita tions: no limitations HENMT: Head: Yes normal to inspection, Yes normocephalic and Yes atraumatic Ears: external ears normal General nose exam: Normal external nose present Face and sinus: Yes normal facial exam Mouth: Normal oral and palatal mucosa present Throat: Yes posterior oropharynx normal Eyes: General: appearance normal, both eyes and all related structures Pupils: Equal, round and reactive pupils present Neck: Neck: Yes normal visual inspection, Yes no lymphadenopathy, Yes trachea midline and Yes supple Chest: Chest palpation & inspection: normal inspection of the chest and normal palpation of entire chest wall Resp: Effort & Inspection: normal respiratory effort and able to speak in complete sentences Auscultation: clear to auscultation bilaterally Cardio: Rate: regular rate Rhythm: regular rhythm Heart sounds: S1 normal heart sound present, S2 normal heart sound present and no murmurs GI: Other: Rectal exam : There is a small rectal skin tag but I do not see any external hemorrhoids, digital examination revealed no internal masses, stool was brown and Hemoccult negative. Inspection: Yes normal to inspection Palpation (GI): Soft to palpation, nontender and no guarding Auscultation: normal bowel sounds : General: Yes no CVA tenderness Back/Spine/Pelvis: Back: no CVA tenderness Skin: General skin exam: no rashes or lesions noted Neuro: General: oriented to person and oriented to place Cranial nerves: Yes CN's II-XII intact bilaterally and Yes Equal, round and reactive pupils present Cognition (Neuro): normal cognition Motor exam (neuro): 5/5 motor strength present throughout Extrem: General: Yes normal to inspection Psych: Appearance: grossly normal Speech and movement: Normal speech and movement present Affect: normal affect Attitude: cooperative Thought process: Normal thought process present Thought content: Normal thought content present Course Course Course Narrative: 41-year-old female who presents emergency department for evaluation of rectal bleeding after constipation for 2 days and straining to move her bowels today. The patient was not ill in any way prior to the rectal bleed. Vital signs revealed a blood pressure of 140/82 and a pulse of 101. Abdominal exam was normal. Rectal examination was unremarkable. Clinically, I suspect the patient does have a bleeding hemorrhoid I did discuss this with her. She was treated with [id number] medications as per the discharge instructions. She was advised to follow-up with her PCP for referral to a Gastroenterology for evaluation of her rectal bleeding and I also gave her the name of our on-call frame tender. Discharge Plan Discharge Clinical Impression: Acute lower gastrointestinal bleeding Patient Disposition: Home, Self-Care Instructions: Hemorrhoids (ED), Rectal Bleeding (ED) Additional Instructions: On your exam today, I do not see any external hemorrhoids. Sometimes hemorrhoids are in the inside you cannot see them or feel the them on a rectal examination. Your rectal exam today did not reveal any blood however based on your constipation and the bleeding that you described, I suspect that you have an inflamed internal hemorrhoid that is bleeding. Use preparation H suppositories, 1 suppository twice a day for 1 week. This will lubricate your rectum and make it easier for you to have a bowel movement. Use preparation H cream, apply this to any external hemorrhoid twice a day and try to talk to hemorrhoid back in to the rectum sits in sided and not outside. This helps the hemorrhoid heal. Use Colace stool softener once a day for 1 week. This will help soften your stool. Take Metamucil powder, 1 tsp in 8 oz of water twice a day for 1 week. Follow-up with your PCP for re-evaluation and referral to a frame tender for further evaluation of your bleeding. You can also try to make an appointment with our on-call frame tender, Dr. Chanel. Call his office and see if you can make an appointment for re-evaluation in 2 weeks. Follow-up with your doctor in 2 days. Please return to the emergency department if your symptoms get worse or if you develop any symptoms that are concerning to you. Prescriptions: No Action phenazopyridine [Pyridium] 100 mg tablet 100 mg PO TID PRN (Reason: pain) Qty: 6 RF: 0 nitrofurantoin monohyd/m-cryst [Macrobid] 100 mg capsule 100 mg PO BID 7 Days Qty: 14 RF: 0 docusate sodium [Colace] 100 mg capsule 100 mg PO BID PRN (Reason: Constipation) Qty: 14 RF: 0 ibuprofen 800 mg tablet 800 mg PO Q8H PRN (Reason: pain) Qty: 14 RF: 0 ondansetron HCl [Zofran] 4 mg tablet 4 mg PO Q8H PRN (Reason: nausea and vomiting) Qty: 14 RF: 0 ascorbate calcium (vitamin C) 500 mg tablet 500 mg PO DAILY RF: 0 mupirocin 2 % ointment 1 applic topical BID Qty: 15 RF: 0 Referrals: Natan Chanel [Physician] - 2 weeks
== END 2021-04-06 12:20 | disposition home or self-care (01) ==
PROVIDERS: Emergency Provider Emergency Medicine Emergency Medical Services; PCP Internal Medicine
DX: K92.2 Gastrointestinal hemorrhage, unspecified (principal)
CPT/HCPCS: 99281; 99282

== ENCOUNTER 2021-06-15 06:22 | Emergency (ER) | payer OTHER, SELFPAY ==
[2021-06-15 06:38] VITALS: BP 139/88; PULSE 102; RESP 18; TEMP 36.6; O2SAT 100; BMI 22.6
--- NOTE | 2021-06-15 06:46 | ED_ITS ---
HPI - Nausea/Vomiting/Diarrhea General Chief complaint: Nausea/Vomiting/Diarrhea Stated complaint: vomiting since 06/14 Time Seen by Provider: 06/15/21 06:45 Source: patient Mode of arrival: ambulatory Limitations: no limitations History of Present Illness MD elicited complaint: nausea and vomiting Onset (ago): minute(s) (30) Description of vomiting: food contents and watery Associated nausea: Yes Associated abdominal pain: No Severity: moderate Exacerbating factors: eating Relieving factors: none Context: other (works at [employer]) Associated symptoms: loss of appetite, malaise, nausea/vomiting and other (loose stools yesterday but no diarrhea did take pepto bismol) Treatment prior to arrival: other OTC medicine Related Data Home Medications Medication Instructions Recorded Confirmed ascorbate calcium (vitamin C) 500 500 mg PO DAILY 06/07/20 06/07/20 mg tablet Previous Rx's Medication Instructions Recorded mupirocin 2 % topical ointment 1 applic TOPICAL BID #15 g 02/20/20 docusate sodium 100 mg capsule 100 mg PO BID PRN #14 cap 07/07/20 (Colace) ibuprofen 800 mg tablet 800 mg PO Q8H PRN #14 tab 07/07/20 nitrofurantoin 100 mg PO BID 7 Days #14 cap 07/07/20 monohydrate/macrocrystals 100 mg capsule (Macrobid) ondansetron HCl 4 mg tablet 4 mg PO Q8H PRN #14 tab 07/07/20 (Zofran) phenazopyridine 100 mg tablet 100 mg PO TID PRN #6 tab 07/07/20 (Pyridium) ondansetron 4 mg disintegrating 4 mg PO Q8H PRN #20 tab 06/15/21 tablet Allergies Allergy/AdvReac Type Severity Reaction Status Date / Time droperidol [From Inapsine] Allergy Severe ITCHING,SEI Verified 06/15/21 06:38 ZURE seafood Allergy Unknown ithcy Verified 06/15/21 06:38 Review of Systems Review of Systems: Constitutional : No Weight loss, No Fever, No Chills ENT/Mouth : No sore throat, No Rhinorrhea Eyes: No Swelling, No Redness Cardiovascular : No Chest Pain, No SOB, NoEdema Respiratory : No Cough, No Sputum, No Wheezing Gastrointestinal : Positive Nausea, Positive Vomiting, no Diarrhea, no abdominal Pain, No Hematochezia, No Melena Genitourinary : No Dysuria, No Urinary Frequency, No Hematuria, No Urgency Musculoskeletal : No joint pain, No Myalgias, No Joint Swelling Skin : No Skin Lesions, No rash Neuro : No Weakness, No Numbness, No Dizziness, No Headache Psych : No Anxiety/Panic, No Depression Heme/Lymph: No Bruising, No Lymphadenopathy Endocrine : No Polyuria, No Polydipsia All other systems reviewed and are negative. Gastrointestinal: Gastrointestinal: Reports nausea PMFSH Past Medical History Attestation statement: The following information was validated with the patient. Medical History Alcohol abuse Allergic rhinitis Complex ovarian cyst Tobacco abuse Surgical History History of tubal ligation Family History Family History Father Medical history unknown Mother Hypertension CVD (cardiovascular disease) Brother Brain cancer Maternal Aunt Myocardial infarction Social History Social History Alcohol intake: never Advance Directives: No Patient : No Physical Exam Vital Signs: Vital Signs: Last Vital Signs Temp 97.8 F 06/15/21 06:38 Pulse 102 H 06/15/21 06:38 Resp 18 06/15/21 06:38 BP 139/88 06/15/21 06:38 Pulse Ox 100 06/15/21 06:38 BMI result Body Mass Index 22.6 Appearance: Alert. Oriented X3. Active vomiting, mild acute distress Eyes: Pupils equal, round and reactive to light. ENT: Pharynx dry MM Neck: Normal inspection. Neck supple. CVS: Normal heart rate and rhythm. Pulses normal. Respiratory: No respiratory distress. Breath sounds normal. Abdomen: Soft and nontender. Skin: Skin warm and dry. Normal skin color. Normal skin turgor. Extremities: No lower extremity edema. No calf ttp Neuro: Oriented X 3. No motor deficit. No sensory deficit. 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 At this time will obtain basic labs, UA/UPT. IVF and IV zofran. Dispo per results and findings. Lab Data Result diagrams: 06/15/21 07:04 06/15/21 07:04 Labs: Lab Results 06/15/21 06/15/21 06/15/21 Range/Units 07:04 07:04 07:04 WBC 8.2 (4.8-10.8) X10*3/uL RBC 4.61 (4.20-5.50) X10*6/uL Hgb 12.4 (12.0-16.0) g/dl Hct 38.7 (37.0-47.0) % MCV 83.9 (80.0-98.0) fL MCH 26.9 L (27.0-33.0) pg MCHC 32.0 (31.0-35.0) g/dl RDW 13.2 (11.0-16.0) % Plt Count 392 (160-400) X10*3/uL MPV 9.8 (9.4-12.3) fL Immature Gran % (Auto) 0.2 (0.0-0.4) % Neut % (Auto) 71.7 (45-73) % Lymph % (Auto) 20.7 (20-40) % [place] % (Auto) 6.6 (2-11) % Eos % (Auto) 0.4 (0-4) % Baso % (Auto) 0.4 (0-2) % Lymph # (Auto) 1.7 (1.2-4.9) X10*3/uL [place] # (Auto) 0.5 (0.1-1.2) X10*3/uL Eos # (Auto) 0.0 (0.0-0.4) X10*3/uL Baso # (Auto) 0.0 (0.0-0.2) X10*3/uL Abs Immat Gran (auto) 0.02 (0.00-0.03) X10*3/uL Absolute Neuts (auto) 5.9 (2.0-8.3) x10*3/uL Absolute Nucleated RBC 0.000 (0.0-0.012) X10*3/uL Nucleated RBC % (auto) 0.0 (0.0-0.2) /100WBC Sodium 137 (135-145) mmol/L Potassium 3.5 (3.3-5.1) mmol/L Chloride 104 (96-108) mmol/L Carbon Dioxide 23 (22-29) mmol/L Anion Gap 14 (12-20) BUN 7 L (9-16) mg/dL Creatinine 0.73 (0.5-1.4) mg/dL Estim Creat Clear Calc 68.4 Estimated GFR > 60 Random Glucose 120 H (60-115) mg/dL Calcium 9.5 (8.4-10.2) mg/dL Magnesium 1.8 (1.6-2.6) mg/dL Total Bilirubin 0.3 (0.0-1.0) mg/dL Direct Bilirubin 0.2 (0.0-0.5) mg/dL AST 20 (5-31) U/L ALT 25 (0-31) U/L Alkaline Phosphatase 64 (39-117) U/L Total Protein 7.9 (6.5-8.0) g/dL Albumin 4.4 (3.5-5.0) g/dL Lipase 22 (8-78) U/L Urine Color Urine Appearance Urine pH (5.0-8.0) Ur Specific [place] (1.005-1.025) Urine Protein (NEG-TRACE) MG/DL Urine Glucose (UA) (NEG) MG/DL Urine Ketones (NEG) MG/DL Urine Blood (NEG) Urine Nitrite (NEG) Ur Leukocyte Esterase (NEG) Urine RBC (0) /HPF Urine WBC (0-4) /HPF Ur Squamous Epith Cells /LPF Urine Bacteria /LPF Urine Mucus /LPF Urine Test (NEGATIVE) COVID-19 (MARY) Negative (Negative) COVID-19 Clin Com See Note 06/15/21 06/15/21 Range/Units 07:33 07:33 WBC (4.8-10.8) X10*3/uL RBC (4.20-5.50) X10*6/uL Hgb (12.0-16.0) g/dl Hct (37.0-47.0) % MCV (80.0-98.0) fL MCH (27.0-33.0) pg MCHC (31.0-35.0) g/dl RDW (11.0-16.0) % Plt Count (160-400) X10*3/uL MPV (9.4-12.3) fL Immature Gran % (Auto) (0.0-0.4) % Neut % (Auto) (45-73) % Lymph % (Auto) (20-40) % [place] % (Auto) (2-11) % Eos % (Auto) (0-4) % Baso % (Auto) (0-2) % Lymph # (Auto) (1.2-4.9) X10*3/uL [place] # (Auto) (0.1-1.2) X10*3/uL Eos # (Auto) (0.0-0.4) X10*3/uL Baso # (Auto) (0.0-0.2) X10*3/uL Abs Immat Gran (auto) (0.00-0.03) X10*3/uL Absolute Neuts (auto) (2.0-8.3) x10*3/uL Absolute Nucleated RBC (0.0-0.012) X10*3/uL Nucleated RBC % (auto) (0.0-0.2) /100WBC Sodium (135-145) mmol/L Potassium (3.3-5.1) mmol/L Chloride (96-108) mmol/L Carbon Dioxide (22-29) mmol/L Anion Gap (12-20) BUN (9-16) mg/dL Creatinine (0.5-1.4) mg/dL Estim Creat Clear Calc Estimated GFR Random Glucose (60-115) mg/dL Calcium (8.4-10.2) mg/dL Magnesium (1.6-2.6) mg/dL Total Bilirubin (0.0-1.0) mg/dL Direct Bilirubin (0.0-0.5) mg/dL AST (5-31) U/L ALT (0-31) U/L Alkaline Phosphatase (39-117) U/L Total Protein (6.5-8.0) g/dL Albumin (3.5-5.0) g/dL Lipase (8-78) U/L Urine Color YELLOW Urine Appearance HAZY Urine pH 6.0 (5.0-8.0) Ur Specific [place] 1.020 (1.005-1.025) Urine Protein NEG (NEG-TRACE) MG/DL Urine Glucose (UA) NEG (NEG) MG/DL Urine Ketones NEG (NEG) MG/DL Urine Blood 2+ H (NEG) Urine Nitrite NEG (NEG) Ur Leukocyte Esterase 1+ H (NEG) Urine RBC 5-9 H (0) /HPF Urine WBC 5-9 H (0-4) /HPF Ur Squamous Epith Cells 2+ /LPF Urine Bacteria 1+ /LPF Urine Mucus 2+ /LPF Urine Test NEGATIVE (NEGATIVE) COVID-19 (MARY) (Negative) COVID-19 Clin Com Discharge Plan Discharge Clinical Impression: Vomiting Qualifiers: Vomiting type: unspecified Nausea presence: with nausea Qualified Code(s): R11.2 - Nausea with vomiting, unspecified Instructions: Acute Nausea and Vomiting (ED) Additional Instructions: return to ED for any worsening symptoms or concerns Prescriptions: New ondansetron 4 mg tablet,disintegrating 4 mg PO Q8H PRN (Reason: nausea and vomiting) Qty: 20 0RF No Action phenazopyridine [Pyridium] 100 mg tablet 100 mg PO TID PRN (Reason: pain) Qty: 6 0RF nitrofurantoin monohyd/m-cryst [Macrobid] 100 mg capsule 100 mg PO BID 7 Days Qty: 14 0RF Rx Instructions: must administer with a meal/food docusate sodium [Colace] 100 mg capsule 100 mg PO BID PRN (Reason: Constipation) Qty: 14 0RF ibuprofen 800 mg tablet 800 mg PO Q8H PRN (Reason: pain) Qty: 14 0RF ondansetron HCl [Zofran] 4 mg tablet 4 mg PO Q8H PRN (Reason: nausea and vomiting) Qty: 14 0RF ascorbate calcium (vitamin C) 500 mg tablet 500 mg PO DAILY 0RF mupirocin 2 % ointment 1 applic topical BID Qty: 15 0RF Stand Alone Forms: Work/School Release
[2021-06-15] MEDS: ondansetron HCL 4 MG/2 ML VIAL IVPUSH (07:06)
[2021-06-15] MEDS: 0.9 % Sodium Chloride 1,000 ML 999 ML IVCONT (07:06)
[2021-06-15] MEDS: Famotidine/PF 20 MG/2 ML VIAL IVPUSH (07:06)
[2021-06-15 07:11] LABS: MANUAL DIFF FLAG NO
[2021-06-15 07:13] LABS: Basophils Percent Auto 0.4 % (0-2); Eosinophils Percent Auto 0.4 % (0-4); Hematocrit 38.7 % (37.0-47.0); Hemoglobin 12.4 g/dl (12.0-16.0); Imm Gran Abs Auto 0.02 X10*3/uL (0.00-0.03); Imm Gran Pct Auto 0.2 % (0.0-0.4); Lymphocytes Absolute Auto 1.7 X10*3/uL (1.2-4.9); Lymphocytes Percent Auto 20.7 % (20-40); Mean Corpuscular Hemoglobin 26.9 pg (27.0-33.0); Mean Corpuscular Volume 83.9 fL (80.0-98.0); Mean Platelet Volume 9.8 fL (9.4-12.3); Monocytes Absolute Auto 0.5 X10*3/uL (0.1-1.2); Monocytes Percent Auto 6.6 % (2-11); Neutrophils Absolute Auto 5.9 x10*3/uL (2.0-8.3); Neutrophils Percent Auto 71.7 % (45-73); Platelet Count 392 X10*3/uL (160-400); Red Blood Count 4.61 X10*6/uL (4.20-5.50); Red Cell Distribution Width 13.2 % (11.0-16.0); White Blood Count 8.2 X10*3/uL (4.8-10.8)
[2021-06-15 07:31] LABS: COVID-19 Test Negative (Negative)
[2021-06-15 07:40] LABS: Appearance Urine HAZY; Color Urine YELLOW; Glucose Urine UA NEG (NEG); Leukocyte Esterase Urine 1+ (NEG); Nitrite Urine NEG (NEG); UACC Culture Trigger YES; Urine Blood 2+ (NEG); Urine Ketones NEG (NEG); Urine Protein NEG (NEG-TRACE)
[2021-06-15 07:40] LABS: Bilirubin Total 0.3 mg/dL (0.0-1.0)
[2021-06-15 07:43] LABS: UPreg QC Valid YES; Urine Pregnancy NEGATIVE (NEGATIVE)
[2021-06-15 07:50] LABS: Alanine Aminotransferase 25 U/L (0-31); Albumin Level 4.4 g/dL (3.5-5.0); Alkaline Phosphatase 64 U/L (39-117); Anion Gap 14 (12-20); Aspartate Amino Transferase 20 U/L (5-31); Bilirubin Direct 0.2 mg/dL (0.0-0.5); Blood Urea Nitrogen 7 mg/dL (9-16); Calcium 9.5 mg/dL (8.4-10.2); Carbon Dioxide 23 mmol/L (22-29); Chloride 104 mmol/L (96-108); Creatinine Clr Calc Pharmacy 68.4; Estimated Glomerular Filt Rate > 60; Glucose Random 120 mg/dL (60-115); Lipase 22 U/L (8-78); Magnesium 1.8 mg/dL (1.6-2.6); Potassium 3.5 mmol/L (3.3-5.1); Sodium 137 mmol/L (135-145); Total Protein 7.9 g/dL (6.5-8.0)
[2021-06-15 07:56] LABS: Bacteria Urine 1+ /LPF; Mucus Urine 2+ /LPF; Squamous Epithelial Cell Urine 2+ /LPF
[2021-06-15 08:06] VITALS: BP 127/93; PULSE 98; RESP 18; O2SAT 100
== END 2021-06-15 08:19 | disposition home or self-care (01) ==
PROVIDERS: Emergency Provider Emergency Medicine; PCP Internal Medicine
DX: N39.0 Urinary tract infection, site not specified (principal); R11.2 Nausea with vomiting, unspecified; Z20.822 Contact with and (suspected) exposure to COVID-19
CPT/HCPCS: 36415; 36569; 80048; 80076; 81001; 81025; 83690; 83735; 85025; 87086; 87147; 87635; 96361; 96374; 96375; 99284; J2405

== ENCOUNTER 2021-07-12 07:12 | Emergency (ER) | payer OTHER, SELFPAY ==
--- NOTE | ~2021-07-12 | CT_ITS ---
EXAMINATION: CT ABDOMEN AND PELVIS WITH CONTRAST CLINICAL INFORMATION: Abdominal pain and vomiting. COMPARISON: Previous CT of the abdomen and pelvis August 2020 and pelvic ultrasound June 2020 TECHNIQUE: Multidetector volumetric images were obtained from the superior aspect of the liver through the pubic symphysis following administration 85 mL of Omnipaque 350 intravenous contrast. Sagittal and coronal reformatted images were obtained on the technologist's workstation. Oral contrast: Yes This CT examination was performed using dose optimization techniques as appropriate, variously including the following: *Automated exposure control *Adjustment of mA and/or kV according to patient size (this includes techniques or standardized protocols for targeted exams where dose is matched to indication/reason for exam; i.e. extremities or head) *Use of iterative reconstruction technique DLP: 350 mGy-cm FINDINGS: LUNG BASES: The visualized lung bases are unremarkable. LIVER, GALLBLADDER, AND BILIARY TREE: The liver is normal in size, shape, and attenuation. No focal hepatic lesion or biliary ductal dilatation is present. The gallbladder is unremarkable with no evidence of radiopaque gallstones, gallbladder wall thickening, or obvious pericholecystic inflammatory changes. PANCREAS: Unremarkable. SPLEEN: Unremarkable. ADRENAL GLANDS: Unremarkable. KIDNEYS AND URETERS: The kidneys are normal in size, shape, and attenuation. No hydronephrosis, hydroureter, or calculi seen. No perinephric stranding. BLADDER: Unremarkable. GASTROINTESTINAL TRACT: The small and large bowel are unremarkable. The appendix is unremarkable. ABDOMINAL WALL: No significant hernia is appreciated. LYMPH NODES: Normal. VASCULAR: Unremarkable. PELVIC VISCERA: There is round low-attenuation seen in the cervix measuring 3.3 cm axial image 59 series 3. This is similar to previous CT of June 2020. No corresponding abnormality was seen by ultrasound. The uterus and adnexa are otherwise unremarkable. OSSEOUS STRUCTURES: Unremarkable. CT/CT abdomen pelvis w con IMPRESSION: No acute findings. Fleischner guidelines were followed.
[2021-07-12 07:15] VITALS: BP 152/97; PULSE 117; RESP 18; TEMP 36.6; O2SAT 100; BMI 23.2
--- NOTE | 2021-07-12 07:23 | ED.NAVMDI ---
HPI - Nausea/Vomiting/Diarrhea General Chief complaint: Nausea/Vomiting/Diarrhea Stated complaint: nausea/vomiting Time Seen by Provider: 07/12/21 07:23 Source: patient and old records reviewed Mode of arrival: ambulatory Limitations: no limitations History of Present Illness HPI Narrative: seen on 06/15 for vomiting - symptoms resolved though late on menses x 1 month test negative that day and patient notes AM nausea taking zofran at home has tubal ligation Rx amoxicillin 500mg TID for group B strep 10 - 50,000 CFU in urine completed course on 06/18 comes back with return of vomiting and intermittent upper abdominal pain and back pain MD elicited complaint: nausea and vomiting Onset (ago): month(s) (1) Description of vomiting: food contents and watery Associated nausea: Yes Associated abdominal pain: Yes Location of pain: epigastric and other (back ) Pain consistency: intermittent Severity: mild Quality: aching Exacerbating factors: none Relieving factors: none Context: other (hx of similar bouts) Associated symptoms: loss of appetite Treatment prior to arrival: other (takes zofran intermittently ) Related Data Home Medications Medication Instructions Recorded Confirmed ascorbate calcium (vitamin C) 500 500 mg PO DAILY 06/07/20 06/07/20 mg tablet Previous Rx's Medication Instructions Recorded mupirocin 2 % topical ointment 1 applic TOPICAL BID #15 g 02/20/20 docusate sodium 100 mg capsule 100 mg PO BID PRN #14 cap 07/07/20 (Colace) ibuprofen 800 mg tablet 800 mg PO Q8H PRN #14 tab 07/07/20 nitrofurantoin 100 mg PO BID 7 Days #14 cap 07/07/20 monohydrate/macrocrystals 100 mg capsule (Macrobid) ondansetron HCl 4 mg tablet 4 mg PO Q8H PRN #14 tab 07/07/20 (Zofran) phenazopyridine 100 mg tablet 100 mg PO TID PRN #6 tab 07/07/20 (Pyridium) ondansetron 4 mg disintegrating 4 mg PO Q8H PRN #20 tab 06/15/21 tablet amoxicillin 500 mg tablet 500 mg PO TID 10 Days #30 tab 06/18/21 omeprazole 20 mg capsule,delayed 20 mg PO DAILY #30 cap 07/12/21 release ondansetron 4 mg disintegrating 4 mg PO Q8H PRN #20 tab 07/12/21 tablet Allergies Allergy/AdvReac Type Severity Reaction Status Date / Time droperidol [From Inapsine] Allergy Severe ITCHING,SEI Verified 06/15/21 06:38 ZURE seafood Allergy Unknown ithcy Verified 06/15/21 06:38 Review of Systems Review of Systems: Constitutional : No Weight loss, No Fever, No Chills ENT/Mouth : No sore throat, No Rhinorrhea Eyes: No Swelling, No Redness Cardiovascular : No Chest Pain, No SOB, NoEdema Respiratory : No Cough, No Sputum, No Wheezing Gastrointestinal : Positive Nausea, Positive Vomiting, no Diarrhea, positive abdominal Pain, No Hematochezia, No Melena Genitourinary : No Dysuria, No Urinary Frequency, No Hematuria, No Urgency Musculoskeletal : No joint pain, No Myalgias, No Joint Swelling, pos back pain Skin : No Skin Lesions, No rash Neuro : No Weakness, No Numbness, No Dizziness, No Headache Psych : No Anxiety/Panic, No Depression Heme/Lymph: No Bruising, No Lymphadenopathy Endocrine : No Polyuria, No Polydipsia All other systems reviewed and are negative Gastrointestinal: Gastrointestinal: Reports nausea PMFSH Past Medical History Attestation statement: The following information was validated with the patient. Medical History Alcohol abuse Allergic rhinitis Complex ovarian cyst Tobacco abuse Surgical History History of tubal ligation Family History Family History Father Medical history unknown Mother Hypertension CVD (cardiovascular disease) Brother Brain cancer Maternal Aunt Myocardial infarction Social History Social History Alcohol intake: never Advance Directives: No Advance Directives Information Provided: No Patient : No Physical Exam Vital Signs: Vital Signs: Last Vital Signs Temp 98.3 F 07/12/21 07:34 Pulse 96 07/12/21 07:34 Resp 14 07/12/21 07:34 BP 130/88 07/12/21 07:34 Pulse Ox 100 07/12/21 07:34 BMI result Body Mass Index 23.2 Appearance: Alert. Oriented X3. No acute distress. Eyes: Pupils equal, round and reactive to light. ENT: Pharynx normal. Neck: Normal inspection. Neck supple. CVS: Normal heart rate and rhythm. Pulses normal. Respiratory: No respiratory distress. Breath sounds normal. Abdomen: Soft and nontender. Back: no CVA ttp Skin: Skin warm and dry. Normal skin color. Normal skin turgor. Extremities: No lower extremity edema. No calf ttp Neuro: Oriented X 3. No motor deficit. No sensory deficit. Course Course Course Narrative: delay in CT scan read - call to Radiology no acute findings on CT scan will start on PPI and refer to GI MDM - Nausea/Vomiting/Diarrhea MDM Narrative Medical decision making narrative: 41 yo female with recurrent bouts of nausea worse in the AM over the past month. Seen on 06/15 no urinary symptoms but treated with amoxicillin on 06/18 for group B strep in urine. At this time possible GERD but given persistent bouts of nausea and some upper abdominal discomfort will obtain basic labs, CT scan for mass, IVF / zofran/ pepcid. Dispo per results and findings. Lab Data Result diagrams: 07/12/21 07:41 07/12/21 07:59 Labs: Lab Results 07/12/21 07/12/21 07/12/21 Range/Units 07:41 07:51 07:59 WBC 7.2 (4.8-10.8) X10*3/uL RBC 4.55 (4.20-5.50) X10*6/uL Hgb 12.2 (12.0-16.0) g/dl Hct 38.4 (37.0-47.0) % MCV 84.4 (80.0-98.0) fL MCH 26.8 L (27.0-33.0) pg MCHC 31.8 (31.0-35.0) g/dl RDW 13.4 (11.0-16.0) % Plt Count 346 (160-400) X10*3/uL MPV 10.0 (9.4-12.3) fL Immature Gran % (Auto) 0.4 (0.0-0.4) % Neut % (Auto) 71.9 (45-73) % Lymph % (Auto) 19.8 L (20-40) % [place] % (Auto) 7.1 (2-11) % Eos % (Auto) 0.4 (0-4) % Baso % (Auto) 0.4 (0-2) % Lymph # (Auto) 1.4 (1.2-4.9) X10*3/uL [place] # (Auto) 0.5 (0.1-1.2) X10*3/uL Eos # (Auto) 0.0 (0.0-0.4) X10*3/uL Baso # (Auto) 0.0 (0.0-0.2) X10*3/uL Abs Immat Gran (auto) 0.03 (0.00-0.03) X10*3/uL Absolute Neuts (auto) 5.2 (2.0-8.3) x10*3/uL Absolute Nucleated RBC 0.000 (0.0-0.012) X10*3/uL Nucleated RBC % (auto) 0.0 (0.0-0.2) /100WBC Sodium 138 (135-145) mmol/L Potassium 4.2 (3.3-5.1) mmol/L Chloride 108 (96-108) mmol/L Carbon Dioxide 22 (22-29) mmol/L Anion Gap 12 (12-20) BUN 5 L (9-16) mg/dL Creatinine 0.66 (0.5-1.4) mg/dL Estim Creat Clear Calc 81.9 Estimated GFR > 60 Random Glucose 106 (60-115) mg/dL Calcium 8.8 D (8.4-10.2) mg/dL Magnesium 1.9 (1.6-2.6) mg/dL Total Bilirubin 0.2 (0.0-1.0) mg/dL Direct Bilirubin 0.2 (0.0-0.5) mg/dL AST 14 (5-31) U/L ALT 14 (0-31) U/L Alkaline Phosphatase 50 D (39-117) U/L Total Protein 7.2 (6.5-8.0) g/dL Albumin 4.0 (3.5-5.0) g/dL Lipase 25 (8-78) U/L Beta HCG, Quant < 2 mIU/mL Urine Color YELLOW Urine Appearance HAZY Urine pH 6.5 (5.0-8.0) Ur Specific [place] 1.020 (1.005-1.025) Urine Protein NEG (NEG-TRACE) MG/DL Urine Glucose (UA) NEG (NEG) MG/DL Urine Ketones NEG (NEG) MG/DL Urine Blood 1+ H (NEG) Urine Nitrite NEG (NEG) Ur Leukocyte Esterase TRACE H (NEG) Urine RBC 1-4 (0) /HPF Urine WBC 1-4 (0-4) /HPF Ur Squamous Epith Cells 2+ /LPF Urine Bacteria 2+ /LPF Urine Mucus 2+ /LPF Urine Yeast TRACE /HPF Discharge Plan Discharge Clinical Impression: Vomiting Qualifiers: Vomiting type: unspecified Nausea presence: with nausea Qualified Code(s): R11.2 - Nausea with vomiting, unspecified Patient Disposition: Home, Self-Care Instructions: Acute Nausea and Vomiting (ED) Additional Instructions: return to ED for any worsening symptoms or concerns LIVER, GALLBLADDER, AND BILIARY TREE: The liver is normal in size, shape, and attenuation. No focal hepatic lesion or biliary ductal dilatation is present. The gallbladder is unremarkable with no evidence of radiopaque gallstones, gallbladder wall thickening, or obvious pericholecystic inflammatory changes.? PANCREAS: Unremarkable.? SPLEEN: Unremarkable.? ADRENAL GLANDS: Unremarkable.? KIDNEYS AND URETERS: The kidneys are normal in size, shape, and attenuation. No hydronephrosis, hydroureter, or calculi seen. No perinephric stranding. ? BLADDER: Unremarkable.? GASTROINTESTINAL TRACT: The small and large bowel are unremarkable. The appendix is unremarkable.? ABDOMINAL WALL: No significant hernia is appreciated.? LYMPH NODES: Normal. VASCULAR: Unremarkable. PELVIC VISCERA: There is round low-attenuation seen in the cervix measuring 3.3 cm axial image 59 series 3. This is similar to previous CT of June 2020. No corresponding abnormality was seen by ultrasound. The uterus and adnexa are otherwise unremarkable. Prescriptions: New ondansetron 4 mg tablet,disintegrating 4 mg PO Q8H PRN (Reason: nausea and vomiting) Qty: 20 0RF omeprazole 20 mg capsule,delayed release(DR/EC) 20 mg PO DAILY Qty: 30 0RF Rx Instructions: take daily for 14 days to see if this improves your symptoms No Action phenazopyridine [Pyridium] 100 mg tablet 100 mg PO TID PRN (Reason: pain) Qty: 6 0RF nitrofurantoin monohyd/m-cryst [Macrobid] 100 mg capsule 100 mg PO BID 7 Days Qty: 14 0RF Rx Instructions: must administer with a meal/food docusate sodium [Colace] 100 mg capsule 100 mg PO BID PRN (Reason: Constipation) Qty: 14 0RF ibuprofen 800 mg tablet 800 mg PO Q8H PRN (Reason: pain) Qty: 14 0RF ondansetron HCl [Zofran] 4 mg tablet 4 mg PO Q8H PRN (Reason: nausea and vomiting) Qty: 14 0RF ondansetron 4 mg tablet,disintegrating 4 mg PO Q8H PRN (Reason: nausea and vomiting) Qty: 20 0RF amoxicillin 500 mg tablet 500 mg PO TID 10 Days Qty: 30 0RF ascorbate calcium (vitamin C) 500 mg tablet 500 mg PO DAILY 0RF mupirocin 2 % ointment 1 applic topical BID Qty: 15 0RF Referrals: Sanju Rojas MD [Physician] - 1 week Stand Alone Forms: Work/School Release
[2021-07-12 07:34] VITALS: BP 130/88; PULSE 96; RESP 14; TEMP 36.8; O2SAT 100
[2021-07-12 07:45] LABS: MANUAL DIFF FLAG NO
[2021-07-12 07:46] LABS: Basophils Percent Auto 0.4 % (0-2); Eosinophils Percent Auto 0.4 % (0-4); Hematocrit 38.4 % (37.0-47.0); Hemoglobin 12.2 g/dl (12.0-16.0); Imm Gran Abs Auto 0.03 X10*3/uL (0.00-0.03); Imm Gran Pct Auto 0.4 % (0.0-0.4); Lymphocytes Absolute Auto 1.4 X10*3/uL (1.2-4.9); Lymphocytes Percent Auto 19.8 % (20-40); Mean Corpuscular HGB Conc 31.8 g/dl (31.0-35.0); Mean Corpuscular Hemoglobin 26.8 pg (27.0-33.0); Mean Corpuscular Volume 84.4 fL (80.0-98.0); Monocytes Absolute Auto 0.5 X10*3/uL (0.1-1.2); Monocytes Percent Auto 7.1 % (2-11); Neutrophils Absolute Auto 5.2 x10*3/uL (2.0-8.3); Neutrophils Percent Auto 71.9 % (45-73); Platelet Count 346 X10*3/uL (160-400); Red Blood Count 4.55 X10*6/uL (4.20-5.50); Red Cell Distribution Width 13.4 % (11.0-16.0); White Blood Count 7.2 X10*3/uL (4.8-10.8)
[2021-07-12] MEDS: 0.9 % Sodium Chloride 1,000 ML 999 ML IVCONT (07:48)
[2021-07-12] MEDS: Famotidine/PF 20 MG/2 ML VIAL IVPUSH (07:48)
[2021-07-12] MEDS: ondansetron HCL 4 MG/2 ML VIAL IVPUSH (07:48)
[2021-07-12 07:57] LABS: Appearance Urine HAZY; Color Urine YELLOW; Glucose Urine UA NEG (NEG); Leukocyte Esterase Urine TRACE (NEG); Nitrite Urine NEG (NEG); PH 6.5 (5.0-8.0); UACC Culture Trigger YES; Urine Blood 1+ (NEG); Urine Ketones NEG (NEG); Urine Protein NEG (NEG-TRACE)
[2021-07-12 08:24] LABS: Alanine Aminotransferase 14 U/L (0-31); Alkaline Phosphatase 50 U/L (39-117); Anion Gap 12 (12-20); Aspartate Amino Transferase 14 U/L (5-31); Bilirubin Direct 0.2 mg/dL (0.0-0.5); Bilirubin Total 0.2 mg/dL (0.0-1.0); Blood Urea Nitrogen 5 mg/dL (9-16); Calcium 8.8 mg/dL (8.4-10.2); Carbon Dioxide 22 mmol/L (22-29); Chloride 108 mmol/L (96-108); Creatinine Clr Calc Pharmacy 81.9; Estimated Glomerular Filt Rate > 60; Glucose Random 106 mg/dL (60-115); Lipase 25 U/L (8-78); Magnesium 1.9 mg/dL (1.6-2.6); Potassium 4.2 mmol/L (3.3-5.1); Sodium 138 mmol/L (135-145); Total Protein 7.2 g/dL (6.5-8.0)
[2021-07-12 08:24] LABS: Bacteria Urine 2+ /LPF; Mucus Urine 2+ /LPF; Squamous Epithelial Cell Urine 2+ /LPF
[2021-07-12 08:31] LABS: HCG Quantitative < 2 mIU/mL
[2021-07-12] MEDS: iohexoL 350 MG/ML 100 ML INFUS..BTL 85 ML IV (08:48)
== END 2021-07-12 11:42 | disposition home or self-care (01) ==
PROVIDERS: Emergency Provider Emergency Medicine; PCP Internal Medicine
DX: R11.2 Nausea with vomiting, unspecified (principal); F10.10 Alcohol abuse, uncomplicated; Y90.9 Presence of alcohol in blood, level not specified; F17.200 Nicotine dependence, unspecified, uncomplicated; Z98.51 Tubal ligation status
CPT/HCPCS: 36415; 74177; 80048; 80076; 81001; 83690; 83735; 84702; 85025; 87086; 96361; 96374; 96375; 99284; J2405; Q9967

== ENCOUNTER 2021-10-12 12:41 | Emergency (ER) | payer OTHER, SELFPAY | END 2021-10-12 14:24 | disposition left against medical advice (07) | PROVIDERS: Emergency Provider Emergency Medicine; PCP Internal Medicine | DX: R10.9 Unspecified abdominal pain (principal) ==

== ENCOUNTER 2021-10-22 07:13 | Outpatient (REF) | payer OTHER, SELFPAY ==
[2021-10-22 07:29] LABS: MANUAL DIFF FLAG NO
[2021-10-22 08:18] LABS: Basophils Percent Auto 0.5 % (0-2); Eosinophils Absolute Auto 0.1 X10*3/uL (0.0-0.4); Eosinophils Percent Auto 1.2 % (0-4); Hemoglobin 12.1 g/dl (12.0-16.0); Imm Gran Abs Auto 0.02 X10*3/uL (0.00-0.03); Imm Gran Pct Auto 0.3 % (0.0-0.4); Lymphocytes Absolute Auto 1.9 X10*3/uL (1.2-4.9); Lymphocytes Percent Auto 31.7 % (20-40); Mean Corpuscular HGB Conc 32.7 g/dl (31.0-35.0); Mean Corpuscular Hemoglobin 27.6 pg (27.0-33.0); Mean Corpuscular Volume 84.3 fL (80.0-98.0); Mean Platelet Volume 10.4 fL (9.4-12.3); Monocytes Absolute Auto 0.6 X10*3/uL (0.1-1.2); Monocytes Percent Auto 9.9 % (2-11); Neutrophils Absolute Auto 3.3 x10*3/uL (2.0-8.3); Neutrophils Percent Auto 56.4 % (45-73); Platelet Count 329 X10*3/uL (160-400); Red Blood Count 4.39 X10*6/uL (4.20-5.50); Red Cell Distribution Width 13.3 % (11.0-16.0); White Blood Count 5.9 X10*3/uL (4.8-10.8)
[2021-10-22 08:42] LABS: Alanine Aminotransferase 12 U/L (0-31); Albumin Level 4.2 g/dL (3.5-5.0); Alkaline Phosphatase 54 U/L (39-117); Anion Gap 11 (12-20); Aspartate Amino Transferase 14 U/L (5-31); Bilirubin Total 0.5 mg/dL (0.0-1.0); Blood Urea Nitrogen 10 mg/dL (9-16); Calcium 9.4 mg/dL (8.4-10.2); Carbon Dioxide 25 mmol/L (22-29); Chloride 107 mmol/L (96-108); Cholesterol 183 mg/dL; Estimated Glomerular Filt Rate > 60; Glucose Random 87 mg/dL (60-115); HDL Cholesterol 86 mg/dL; LDL Cholesterol Calculated 90 mg/dl; Potassium 4.5 mmol/L (3.3-5.1); Sodium 138 mmol/L (135-145); Total Protein 7.7 g/dL (6.5-8.0); Triglycerides 37 mg/dL
[2021-10-22 09:02] LABS: Free T4 (Free Thyroxine) 1.01 ng/dL (0.71-1.85); Thyroid Stimulating Hormone 1.65 uIU/mL (0.32-4.0); Vitamin D 25-OH Total 21.7 ng/mL (>30)
[2021-10-24 09:04] LABS: Folate 15.7 ng/mL (> or = 4.0); Vitamin B12 320 pg/mL (200-900)
== END 2021-10-22 07:14 | disposition home or self-care (01) ==
LOC: HO.LAB 07:13
PROVIDERS: Visit Provider Internal Medicine
DX: K59.00 Constipation, unspecified (principal); E78.00 Pure hypercholesterolemia, unspecified
CPT/HCPCS: 36415; 80053; 80061; 82306; 82607; 82746; 84439; 84443; 85025

== ENCOUNTER 2021-11-23 10:46 | Outpatient (REF) | payer OTHER, SELFPAY ==
[2021-11-24 09:30] LABS: HBc Num1 0.05 S/CO (0.00-0.79); HBsAGNum1 0.21 S/CO (0.00-0.99); Hepatitis B Core Antibody Nonreactive (Nonreactive); Hepatitis B Surface Antigen Negative (Negative); ~HepC Num1 0.05 S/CO (0.00-0.79); ~Hepatitis B Surface Antibody REACTIVE (Nonreactive); ~Hepatitis C Antibody Nonreactive (Nonreactive)
[2021-11-26 01:22] LABS: TS Negative Control Passed; TS Panel A 8; TS Panel B 13; TS Positive Control Passed; TSpotTB Positive (Negative)
== END 2021-11-23 10:47 | disposition home or self-care (01) ==
LOC: HO.LAB 10:46
PROVIDERS: PCP Internal Medicine; Visit Provider Internal Medicine
DX: Z11.1 Encounter for screening for respiratory tuberculosis (principal); R79.89 Other specified abnormal findings of blood chemistry; Z72.0 Tobacco use
CPT/HCPCS: 36415; 86481; 86704; 86706; 86803; 87340

== ENCOUNTER → 2021-12-21 13:12 | Outpatient (BNVA) | payer OTHER, SELFPAY | PROVIDERS: PCP Internal Medicine; Visit Provider Internal Medicine | DX: R76.11 Nonspecific reaction to tuberculin skin test without active tuberculosis (principal) | CPT/HCPCS: 99202 ==

== ENCOUNTER 2022-05-09 08:54 | Outpatient (REF) | payer OTHER, SELFPAY ==
--- NOTE | ~2022-05-09 | MM_ITS ---
EXAMINATION: MM SCREENING DIGITAL BREAST TOMOSYNTHESIS, BILATERAL CLINICAL INFORMATION: Screening. Asymptomatic. The lifetime risk of breast cancer based on the Tyrer-Cuzick Model is 10%. COMPARISON: Mammography: 03/01/2021, 09/01/2020, 03/03/2020, 02/26/2020 TECHNIQUE: Digital breast tomosynthesis is performed in both the craniocaudal and mediolateral oblique views along with computer-aided detection (CAD). Synthesized 2D images are generated from the tomosynthesis. FINDINGS: The breasts are heterogeneously dense, which may obscure small masses (ACR BI-RADS breast composition Category c). There are no significant masses, abnormal calcifications, or other abnormalities. Parenchymal pattern is similar to prior studies. There is no developing density or architectural abnormality. The axilla and skin contours are unremarkable. No significant changes. MM/MM tomosynthesis screening BI IMPRESSION: No mammographic evidence of malignancy. ASSESSMENT: BI-RADS 1: Negative RECOMMENDATION: Routine annual mammography screening. This patient's information was entered into a reminder system with a target due date for their next mammogram.
== END 2022-05-09 08:55 | disposition home or self-care (01) ==
LOC: HO.MAMMO 08:54
PROVIDERS: Visit Provider Internal Medicine
DX: Z12.31 Encounter for screening mammogram for malignant neoplasm of breast (principal)
CPT/HCPCS: 77063; 77067

== ENCOUNTER 2023-02-25 10:29 | Emergency (ER) | payer OTHER, SELFPAY ==
--- NOTE | ~2023-02-25 | XR_ITS ---
EXAMINATION: XR CHEST CLINICAL INFORMATION: Cough COMPARISON: None available. TECHNIQUE: Frontal view of the chest was obtained. FINDINGS: No significant abnormality is noted involving the heart, lungs, mediastinum, bony thorax or soft tissues. XR/XR chest 1V IMPRESSION: Unremarkable examination.
[2023-02-25 10:33] VITALS: BP 122/73; PULSE 111; RESP 9; TEMP 36.6; O2SAT 99; BMI 26.9
[2023-02-25 11:38] LABS: IDNOW Serial# 9DB6401D; Influenza A Negative (Negative); Influenza B2 Negative (Negative)
[2023-02-25 11:39] LABS: COVID-19 Test Negative (Negative); IDNOW Serial# 55D5AD1C
--- NOTE | 2023-02-25 12:34 | PC.NURSE ---
PT IS C/O R MID LUNG PAIN 12/07
--- NOTE | 2023-02-25 12:56 | ED_ITS ---
HPI - General Adult General Chief complaint: Upper Respiratory Symptoms Stated complaint: cough vomiting Time Seen by Provider: 02/25/23 12:12 Source: patient Mode of arrival: ambulatory Limitations: no limitations History of Present Illness HPI narrative: 42-year-old female presents to the ED for dry cough, bodyaches, chills, and chest pain only when she coughs. patient denies any shortness of breath, pleurisy, leg swelling, calf pain, recent long travel, recent surgery, or control use/estrogen Related Data Home Medications Medication Instructions Recorded Confirmed multivitamin 1 tab PO DAILY 10/13/21 10/17/22 Previous Rx's Medication Instructions Recorded benzonatate 150 mg capsule 150 mg PO TID PRN cough 5 days #15 02/25/23 caps Allergies Allergy/AdvReac Type Severity Reaction Status Date / Time droperidol [From Inapsine] Allergy Severe ITCHING,SEI Verified 02/25/23 10:33 ZURE seafood Allergy Unknown ithcy Verified 02/25/23 10:33 Review of Systems Review of Systems: Dry cough, chills, chest pain only when she coughs. Yes all other systems are reviewed and are negative [facility] Past Medical History Medical History (Updated 02/25/23 @ 13:57 by MARTHA Casper) Vomiting Tobacco abuse Alcohol abuse Allergic rhinitis Complex ovarian cyst Surgical History History of tubal ligation Family History Family History (Updated 10/17/22 @ 09:23 by Jelly Baig MD) Father Medical history unknown Mother Hypertension CVD (cardiovascular disease) Brother Brain cancer Maternal Aunt Myocardial infarction Maternal Grandmother Colon cancer Social History Social History Housing: House Alcohol intake: former Patient Tobacco Use Status: Former Tobacco user Tobacco use type: Cigarette Years Smoked: quit 2017 Smoked in Last 30 Days: No e-Cigarette/Vaping Use: Never Used Second Hand Smoke Exposure: No Use of substances other than those prescribed or required for medical reasons: No Advance Directives: No Advance Directives Information Provided: Yes Patient : No Current occupational status: employed Cognitive needs: No Hearing needs: No Vision needs: Yes Physical Exam ED Vital Signs: Vital Signs - 24 hr 02/25/23 10:33 02/25/23 13:57 Temperature 98 F 98.2 F Pulse Rate 111 H 87 Respiratory Rate 9 L 20 Blood Pressure 122/73 108/68 Pulse Oximetry 99 98 Oxygen Delivery Method Room Air BMI result Body Mass Index 26.9 Const General: cooperative, healthy appearing, comfortable and no acute distress Orientation/consciousness: oriented to person, oriented to place, oriented to time and patient oriented x3 [facility] Head: Yes normal to inspection, Yes No palpable skull fracture present, Yes normocephalic and Yes atraumatic Ears: hearing grossly normal bilaterally, external ears normal, TM's normal bilaterally, TM normal on the right, TM normal on the left, EAC's normal, mastoids normal and no periauricular adenopathy Face and sinus: Yes normal facial exam, Yes sinuses nontender and Yes face symmetric Mouth: Normal oral and palatal mucosa present, lip normal and tongue normal Throat: Yes posterior oropharynx normal, Yes tonsils normal and Yes uvula midline Eyes General: appearance normal, both eyes and all related structures Neck Neck: Yes normal visual inspection, Yes full ROM, Yes no lymphadenopathy, Yes no meningeal signs, Yes trachea midline, Yes supple, No anterior neck swelling and No tender Chest Chest palpation & inspection: normal inspection of the chest and normal palpation of entire chest wall Resp Effort & Inspection: normal respiratory effort and able to speak in complete sentences Auscultation: clear to auscultation bilaterally Cardio Jugular venous distension: no JVD Heart sounds: S1 normal heart sound present and S2 normal heart sound present GI Inspection: Yes normal to inspection and No abdominal wall ecchymosis Palpation (GI): Soft to palpation, not firm, nontender, no guarding and not rigid General: No CVA tenderness and Yes no CVA tenderness Back/Spine/Pelvis Back: no CVA tenderness, No CVA tenderness and No back tenderness Skin General skin exam: no rashes or lesions noted, elasticity normal and turgor normal Neuro General: oriented to person, oriented to place, oriented to time, patient oriented x3, gait normal, tone normal, moves all extremities, Normal light touch and pain sensation, no meningeal signs, no focal motor deficits, CN's II-XI intact bilaterally and normal sensation to monofilament Extrem Other: bilateral lower extremities negative for swelling, pitting edema, or calf tenderness. General: Yes normal to inspection, Yes full ROM and Yes capillary refill normal Psych Appearance: grossly normal, well kempt and not disheveled Medical Decision Making Medical Decision Making [facility] Narrative: 42-year-old female presents to ED for URI symptoms such as dry cough, chest pain only when she coughs, body aches, subjective fever and chills. COVID influenza swab negative. Patient is sent for chest x-ray. 1:55pm; Chest x-ray normal. Patient safe for discharged. Not suspecting any cardiomyopathy, myocardial infarction, PE, pericardial effusion, or pericarditis. No need for any EKG or blood work Lab Data [facility] Lab Attestation statement: I reviewed the patient's lab results. Labs: Lab Results 02/25/23 Range/Units 10:47 COVID-19 (MARY) Negative (Negative) COVID-19 Clin Com See Note Influenza Type A (SU) Negative (Negative) Influenza Type B (SU) Negative (Negative) Influenza A & B Note See Note Independent Interpretation I performed an independent interpretation of an: Plain X-Ray Radiology Impression Discussion of test interpretation with radiology: I have reviewed the radiologist's reading. Independent Historian Clinical information obtained from an independent historian. History obtained from or confirmed by: Other External Record Review External record reviewed: Other ( prior ED visit) Prescription Management I considered prescription management with: Other ( cough medication) Discharge Plan Discharge Clinical Impression: URI (upper respiratory infection) Patient Disposition: Home, Self-Care Instructions: Upper Respiratory Infection (ED) Additional Instructions: return to the ED immediately for any leg swelling, calf pain, coughing up blood, chest pain on inspiration, shortness of breath, chest pain, abdominal pain, talked about fever, chills, weakness, dizziness, coughing up blood, or any other concerning symptoms. Prescriptions: New benzonatate 150 mg capsule 150 mg PO TID PRN (Reason: cough) 5 Days Qty: 15 0RF No Action multivitamin Tablet 1 tab PO DAILY Stand Alone Forms: Work/School Release Interventions: ED Discharge Assessment Last Done: 02/25/23 14:12 Discharge Date/Time: 02/25/23 14:12 Print Language: Monegasque
[2023-02-25 13:57] VITALS: BP 108/68; PULSE 87; RESP 20; TEMP 36.8; O2SAT 98
== END 2023-02-25 14:12 | disposition home or self-care (01) ==
PROVIDERS: Emergency Provider Student in an Organized Health Care Education/Training Program; PCP Internal Medicine
DX: J06.9 Acute upper respiratory infection, unspecified (principal); R05.9 Cough, unspecified; M79.10 Myalgia, unspecified site; R07.89 Other chest pain; Z11.52 Encounter for screening for COVID-19; Z20.822 Contact with and (suspected) exposure to COVID-19; Z87.891 Personal history of nicotine dependence
CPT/HCPCS: 71045; 87502; 87635; 99284

== ENCOUNTER 2023-06-26 09:02 | Outpatient (REF) | payer OTHER, SELFPAY ==
[2023-06-26 11:46] LABS: CT PCR NOT DETECTED (Not Detect.); NG PCR NOT DETECTED (Not Detect.)
[2023-07-01 11:04] LABS: HPV mRNA E6/E7 rflx Not Detected (Not Detected)
== END 2023-06-26 09:03 | disposition home or self-care (01) ==
LOC: HO.LNP 09:02
PROVIDERS: PCP Internal Medicine; Visit Provider Obstetrics & Gynecology
DX: Z01.419 Encounter for gynecological examination (general) (routine) without abnormal findings (principal); Z11.51 Encounter for screening for human papillomavirus (HPV); N93.9 Abnormal uterine and vaginal bleeding, unspecified
CPT/HCPCS: 0353U; 87624; 88142; 99386

== ENCOUNTER 2023-06-26 09:02 | Outpatient (AMB) | payer OTHER, SELFPAY ==
[2023-06-26 09:11] VITALS: BP 112/66; BMI 25.9
--- NOTE | 2023-06-26 09:11 | A.OFFVIS_ITS ---
Intake Vital Signs 06/26/23 09:11 Height 4 ft 11 in Weight 128 lb BMI 25.9 BP 112/66 Intake Visit Reasons: New patient Annual Intake Note: no concerns Orthopedic Physical Therapist Required: No Information Interpreted: non-clinical & clinical Plaster Mold Maker: Plaster Mold Maker Present (Nhung Forman PASTORA) Accompanied by: Self / Same As Patient Allergies droperidol [From Inapsine] Allergy (Severe, Verified 06/26/23 09:12) ITCHING,SEIZURE seafood Allergy (Unknown, Verified 06/26/23 09:12) ithcy Is last menstrual period known: Yes Last menstrual period: 06/19/23 HPI HPI Comments History of Present Illness Details Presenting for annual exam. Complaining of heavy menstrual cycles associated with passage of blood clots and pelvic cramping Last Pap/HPV was negative in 10/13 Last Mammogram was BI-RADS 1 in 05/22 [facility] Medical History Vomiting Tobacco abuse Alcohol abuse Allergic rhinitis Complex ovarian cyst Surgical History History of tubal ligation Family History Father Medical history unknown Mother Hypertension CVD (cardiovascular disease) Brother Brain cancer Maternal Aunt Myocardial infarction Maternal Grandmother Colon cancer Social History Household Members: Children Housing: House Alcohol intake: former Patient Tobacco Use Status: Former Tobacco user Tobacco use type: Cigarette Years Smoked: quit 2016 e-Cigarette/Vaping Use: Never Used Second Hand Smoke Exposure: No Current occupational status: employed 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 Sexually active: No Sexual orientation: Straight/Heterosexual Gender identity: Female Cognitive needs: No Hearing needs: No Vision needs: Yes Female Reproductive History Menstrual Date of last menstrual period: 06/19/23 control method: permanent sterilization Total pregnancies: 2 Full term: 2 Number of Living Children: 2 Date of Mammogram: 05/09/22 Review of Systems Const All systems reviewed & are unremarkable except as noted in HPI and below Card Reports as per HPI Resp Reports as per HPI GI Reports as per HPI and Reports no additional complaints Reports as per HPI Physical Exam Vital Signs: Last Vital Signs BP 112/66 06/26/23 09:11 BMI result Body Mass Index 25.9 Const General: cooperative, healthy appearing and comfortable Chest Chest palpation & inspection: normal inspection of the chest and normal palpation of entire chest wall Breast/axilla inspection: normal inspection of the breasts and normal inspection of the axillae Breast/axilla palpation: normal palpation of the breasts, normal palpation of the axillae and no axillary lymphadenopathy Resp Effort & Inspection: normal respiratory effort Auscultation: clear to auscultation bilaterally Percussion: percussion normal Cardio Palpation: normal PMI Rate: regular rate Rhythm: regular rhythm Heart sounds: no murmurs and no rubs Peripheral pulses: Peripheral pulses 2+ throughout GI Inspection: Yes normal to inspection Palpation (GI): Soft to palpation, nontender, no guarding, not rigid and No hepatosplenomegaly present Percussion: Yes normal to percussion Auscultation: normal bowel sounds Rectal Exam - Female: deferred General: Yes bladder normal to palpation External Female Exam: No lesion Speculum Exam - Vagina: normal appearance of the vagina, normal palpation, normal vaginal discharge and not erythematous Speculum Exam - Cervix: normal appearance of the cervix and normal palpation Bimanual exam- vagina & uterus: normal bimanual exam, normal palpation, uterine size normal, bladder normal to palpation, consistency normal and normal palpation Bimanual Exam- Adnexa, other: normal adnexae, no masses and no tenderness Assessment & Plan Assessment & Plan (1) Well woman exam: Code(s): Z01.419 - Encounter for gynecological examination (general) (routine) without abnormal findings Plan: Cotesting done. Mammogram ordered. Counseled the patient about the recommended dietary allowance of 1000 mg of Calcium & 600 IU of vitamin D. The patient was instructed to perform monthly self-breast exams and to schedule an annual exam in a year; All questions answered and the patient verbalized understanding. Instructed the patient to schedule annual exam in a year (2) Abnormal uterine bleeding (AUB): Code(s): N93.9 - Abnormal uterine and vaginal bleeding, unspecified Plan: Co testing done, GC and chlamydia taken CBC, TSH, prolactin, HCG, and pelvic ultrasound ordered. Discussed with the patient the different causes of abnormal bleeding including thyroid disorders, uterine and ovarian pathology, endometrial hyperplasia, carcinoma and other potential causes. Discussed with the patient the work up including CBC (to r/o anemia), TSH, pelvic Ultrasound, endometrial biopsy to r/o endometrial pathology. All questions answered and the patient verbalized understanding. Instructed the patient to schedule an appointment for an endometrial biopsy in 2 weeks. Orders: Orders MM tomosynthesis screening BI Today Z12.31 - Encounter for screening mammogram for malignant neoplasm of breast TSH reflex Free T4 Today N93.9 - Abnormal uterine and vaginal bleeding, unspecified Prolactin Today N93.9 - Abnormal uterine and vaginal bleeding, unspecified HCG Quantitative Today N93.9 - Abnormal uterine and vaginal bleeding, unspecified US pelvic and transvaginal Today N93.9 - Abnormal uterine and vaginal bleeding, unspecified Complete Blood Count no Diff Today N93.9 - Abnormal uterine and vaginal bleeding, unspecified Coding Level of Care Code New Pt Prev Care 40-64y(21730) Diagnoses Well woman exam Z01.419 Abnormal uterine bleeding (AUB) N93.9
== END 2023-06-26 10:19 | disposition home or self-care (01) ==
PROVIDERS: PCP Internal Medicine; Visit Provider Obstetrics & Gynecology
DX: Z01.419 Encounter for gynecological examination (general) (routine) without abnormal findings (principal); N93.9 Abnormal uterine and vaginal bleeding, unspecified
CPT/HCPCS: 99386

== ENCOUNTER 2023-06-26 09:35 | Outpatient (REF) | payer OTHER, SELFPAY ==
[2023-06-26 09:57] LABS: Hematocrit 37.4 % (37.0-47.0); Mean Corpuscular HGB Conc 32.1 g/dl (31.0-35.0); Mean Corpuscular Volume 84.2 fL (80.0-98.0); Mean Platelet Volume 9.7 fL (9.4-12.3); Platelet Count 339 X10*3/uL (160-400); Red Blood Count 4.44 X10*6/uL (4.20-5.50); Red Cell Distribution Width 13.7 % (11.0-16.0); White Blood Count 6.8 X10*3/uL (4.8-10.8)
[2023-06-26 11:06] LABS: HCG Quantitative < 2 mIU/mL; TSH reflex Free T4 1.37 uIU/mL (0.32-4.0)
[2023-06-28 04:49] LABS: Prolactin 12.1 ng/mL
== END 2023-06-26 09:36 | disposition home or self-care (01) ==
LOC: HO.LAB 09:35
PROVIDERS: PCP Internal Medicine; Visit Provider Obstetrics & Gynecology
DX: N93.9 Abnormal uterine and vaginal bleeding, unspecified (principal)
CPT/HCPCS: 36415; 84146; 84443; 84702; 85027

== ENCOUNTER 2023-07-03 08:49 | Outpatient (REF) | payer OTHER, SELFPAY ==
--- NOTE | ~2023-07-03 | MM_ITS ---
EXAMINATION: MM SCREENING DIGITAL BREAST TOMOSYNTHESIS, BILATERAL CLINICAL INFORMATION: Screening. Asymptomatic. COMPARISON: Mammography: 05/09/2022, 03/01/2021, 09/01/2020, 03/03/2020, 02/26/2020 Ultrasound: Right breast ultrasound 09/03/2020, bilateral breast ultrasound 03/03/2020. Left breast ultrasound 06/07/2010. TECHNIQUE: Digital breast tomosynthesis is performed in both the craniocaudal and mediolateral oblique views along with computer-aided detection (CAD). Synthesized 2D images are generated from the tomosynthesis. FINDINGS: The breasts are heterogeneously dense, which may obscure small masses (ACR BI-RADS breast composition Category c). Seen only on the CC projection of the right breast, there is a 6 mm nodular asymmetry in the slightly lateral aspect, posterior one third, without definite correlate identified on the MLO projection. Diagnostic views are recommended to include spot compression view in the CC projection, spot compression view in the MLO projection, and a full-field right mediolateral view. Ultrasound may be necessary as well at the discretion of the radiologist. Otherwise, no additional masses, foci of architectural distortion, or suspicious calcifications are identified in either breast. Focal asymmetric breast tissue in the left breast, tail of Aguilera, has been present on multiple exams and is unchanged and benign. There are no skin or axillary abnormalities. MM/MM tomosynthesis screening BI IMPRESSION: 1 view asymmetry lateral cc projection posterior one third for which diagnostic views are recommended as detailed above. Ultrasound may be necessary. No additional suspicious findings in either breast. ASSESSMENT: BI-RADS BI-RADS 0 - Incomplete: Needs additional Imaging. RECOMMENDATION: 1. Additional views of the right breast. 2. Targeted ultrasound if warranted after review of the additional views. 3. Radiology department staff will contact the patient for additional imaging. Additional Imaging required This examination should not preclude the clinical evaluation of a suspicious palpable abnormality. This patient may benefit from bilateral screening ultrasound as an adjunct due to the density of her breasts which border on extremely dense.
== END 2023-07-03 08:50 | disposition home or self-care (01) ==
LOC: HO.MAMMO 08:49
PROVIDERS: PCP Internal Medicine; Visit Provider Internal Medicine
DX: Z12.31 Encounter for screening mammogram for malignant neoplasm of breast (principal)
CPT/HCPCS: 77063; 77067

== ENCOUNTER → 2023-07-03 09:45 | Outpatient (BNV) | payer OTHER, SELFPAY | PROVIDERS: PCP Internal Medicine; Visit Provider Radiology Diagnostic Radiology | DX: Z12.31 Encounter for screening mammogram for malignant neoplasm of breast (principal) | CPT/HCPCS: 77063; 77067 ==

== ENCOUNTER 2023-07-17 10:41 | Outpatient (REF) | payer OTHER, SELFPAY ==
--- NOTE | ~2023-07-17 | US_ITS ---
EXAM: Pelvic Ultrasound CLINICAL INDICATION: Abnormal bleeding COMPARISON: Pelvic ultrasound 07/07/2020 TECHNIQUE: The pelvis was evaluated using transabdominal and transvaginal imaging. FINDINGS: The uterus measures 9.3 x 5.0 x 6.0 cm in longitudinal by AP by transverse dimension. There are a few uterine fibroids noted, largest measuring approximately 2.7 cm. The endometrium is thickened measuring up to 1.2 cm. There is a 4 mm echogenic avascular focus within the endometrium which may represent a small polyp. Nabothian cysts are noted within the cervix. The left ovary measures approximately 3.1 x 1.4 x 2.5 cm and is normal. The right ovary measures approximately 2.0 x 1.0 x 1.2 cm and is also normal. There are no abnormal adnexal masses. There is no free fluid in the pelvis. US/US pelvic and transvaginal IMPRESSION: 1. Endometrium is thickened measuring up to 1.2 cm. There is a 4 mm echogenic avascular focus within the endometrium which may represent a small polyp. Direct inspection/biopsy may be warranted. 2. Uterine fibroids. 3. Nabothian cysts of the cervix.
== END 2023-07-17 10:42 | disposition home or self-care (01) ==
LOC: HO.US 10:41
PROVIDERS: PCP Internal Medicine; Visit Provider Obstetrics & Gynecology
DX: N93.9 Abnormal uterine and vaginal bleeding, unspecified (principal)
CPT/HCPCS: 76830; 76856

== ENCOUNTER → 2023-07-19 09:30 | Outpatient (BNV) | payer OTHER, SELFPAY | PROVIDERS: PCP Internal Medicine; Visit Provider Radiology Diagnostic Radiology | DX: N60.01 Solitary cyst of right breast (principal) | CPT/HCPCS: 76642; 77061; 77065 ==

== ENCOUNTER 2023-07-19 09:50 | Outpatient (REF) | payer OTHER, SELFPAY ==
--- NOTE | ~2023-07-19 | US_ITS ---
EXAMINATION: MM DIAGNOSTIC DIGITAL BREAST TOMOSYNTHESIS, RIGHT US BREAST LIMITED, RIGHT MAMMOGRAPHY: CLINICAL INFORMATION: Diagnostic follow-up for one view asymmetry measuring 6 mm in the slightly lateral posterior one third right breast seen on CC projection only. No MLO correlate. COMPARISON: Mammography: 07/03/2023, 05/09/2022, 03/01/2021, and exams dating back to 2019. TECHNIQUE: Digital breast tomosynthesis is performed in the following views: Full-field right mediolateral view, spot compression right MLO and CC views, with ultrasound to follow. FINDINGS: The breasts are heterogeneously dense, which may obscure small masses (ACR BI-RADS breast composition Category c). No definite persistence of mass is evident on the MLO or CC spot compression views. On the full-field ML view, there is a small round circumscribed nodular asymmetry measuring 6 mm, 7-8 o'clock axis approximately. This will be evaluated by ultrasound. No additional suspicious abnormalities right breast. There are no skin or axillary abnormalities right breast. ULTRASOUND: CLINICAL INFORMATION: As above. COMPARISON: 09/03/2020 right breast ultrasound. TECHNIQUE: Targeted sonographic evaluation was performed using a high frequency linear transducer. Attention was given to the 6-12 o'clock axis right breast. Selected archived documentation. FINDINGS: RIGHT BREAST: There is abundant dense fibrocystic tissue present in the lower outer and upper outer quadrant right breast. In the 12:00 axis, 3 cm from the nipple, there is a 4 mm simple cyst present, benign. In the 9:30 o'clock axis, 4 cm from the nipple, there is a simple cysts measuring approximately 8 x 4 x 6 mm, possibly representing the abnormality of concern from the mammogram. Diffuse fibrocystic changes are noted. No suspicious masses or suspicious regions of shadowing identified. US/US breast RT limited mamm only IMPRESSION: There are no findings suspicious for malignancy in the right breast. There are fibrocystic changes, and simple cysts present as detailed above, benign. No further follow-up recommended for these findings. There are no suspicious findings. Recommend the patient return to routine annual screening in 12 months. OVERALL ASSESSMENT: Mammography: BI-RADS 2 - Benign Findings Ultrasound: BI-RADS 2 - Benign Findings RECOMMENDATION: 1 year F/U This patient's information was entered into a reminder system with a target due date for their next mammogram.
== END 2023-07-19 09:51 | disposition home or self-care (01) ==
LOC: HO.MAMMO 09:50
PROVIDERS: PCP Internal Medicine; Visit Provider Internal Medicine
DX: N64.89 Other specified disorders of breast (principal)
CPT/HCPCS: 76642; 77061; 77065

== ENCOUNTER 2023-08-07 08:53 | Outpatient (AMB) | payer OTHER, SELFPAY ==
--- NOTE | 2023-08-07 09:02 | MHC.OFFVIS ---
Intake Vital Signs 08/07/23 09:06 Height 4 ft 11 in Weight 128 lb BMI 25.9 BP 105/62 Intake Visit Reasons: U/S follow up/EMB Sheepskin Pickler Required: No Information Interpreted: clinical only Drafter Electrical: Drafter Electrical Present Allergies droperidol [From Inapsine] Allergy (Severe, Verified 08/07/23 09:07) ITCHING,SEIZURE seafood Allergy (Unknown, Verified 06/26/23 09:12) ithcy Is last menstrual period known: Yes Last menstrual period: 08/01/23 Post menopausal: No Patient : No Do you need a note to return to daycare/school/sports/work: No HPI HPI Comments History of Present Illness Details Presenting for ultrasound follow-up. Pelvic ultrasound showed the following: The uterus measures 9.3 x 5.0 x 6.0 cm in longitudinal by AP by transverse dimension. There are a few uterine fibroids noted, largest measuring approximately 2.7 cm. The endometrium is thickened measuring up to 1.2 cm. There is a 4 mm echogenic avascular focus within the endometrium which may represent a small polyp. Nabothian cysts are noted within the cervix. The left ovary measures approximately 3.1 x 1.4 x 2.5 cm and is normal. The right ovary measures approximately 2.0 x 1.0 x 1.2 cm and is also normal. There are no abnormal adnexal masses. There is no free fluid in the pelvis. [facility] Medical History Vomiting Tobacco abuse Alcohol abuse Allergic rhinitis Complex ovarian cyst Surgical History History of tubal ligation Family History Father Medical history unknown Mother Hypertension CVD (cardiovascular disease) Brother Brain cancer Maternal Aunt Myocardial infarction Maternal Grandmother Colon cancer Social History Household Members: Children Housing: House Alcohol intake: former Patient Tobacco Use Status: Former Tobacco user Tobacco use type: Cigarette Years Smoked: quit 2017 e-Cigarette/Vaping Use: Never Used Second Hand Smoke Exposure: No Current occupational status: employed 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 Sexual orientation: Straight/Heterosexual Gender identity: Female Cognitive needs: No Hearing needs: No Vision needs: Yes Female Reproductive History Menstrual Duration of menses: 3-5 days Date of last menstrual period: 08/01/23 control method: permanent sterilization Total pregnancies: 2 Full term: 2 History of abnormal pap smear: No Review of Systems Card Reports as per HPI and Reports no additional complaints Resp Reports as per HPI and Reports no additional complaints GI Reports as per HPI and Reports no additional complaints Reports as per HPI Physical Exam Vital Signs: Last Vital Signs BP 105/62 08/07/23 09:06 BMI result Body Mass Index 25.9 Const General: cooperative, healthy appearing and comfortable Chest Chest palpation & inspection: normal inspection of the chest and normal palpation of entire chest wall Breast/axilla inspection: normal inspection of the breasts and normal inspection of the axillae Breast/axilla palpation: normal palpation of the breasts, normal palpation of the axillae and no axillary lymphadenopathy Resp Effort & Inspection: normal respiratory effort Auscultation: clear to auscultation bilaterally Percussion: percussion normal Cardio Palpation: normal PMI Rate: regular rate Rhythm: regular rhythm Heart sounds: no murmurs and no rubs Peripheral pulses: Peripheral pulses 2+ throughout GI Inspection: Yes normal to inspection Palpation (GI): Soft to palpation, nontender, no guarding, not rigid and No hepatosplenomegaly present Percussion: Yes normal to percussion Auscultation: normal bowel sounds Rectal Exam - Female: deferred Results AMB Test Urine AMB Test Urine Negative Last Edit by Yahir Posada CMA on 08/07/23 09:14 Assessment & Plan Assessment & Plan (1) Abnormal uterine bleeding (AUB): Comment: Endometrial polyp Code(s): N93.9 - Abnormal uterine and vaginal bleeding, unspecified Plan: Discussed with the patient the finding on ultrasound showing possible endometrial polyp, recommended hysteroscopy D&C possible polypectomy/myomectomy. Discussed with the patient the procedure , all benefits and risks including but not limited to inability to complete the procedure , insufficient endometrial tissue for a complete evaluation of the endometrial cavity , bleeding, infection, possible need for blood transfusion with all its risk ( HIV,syphilis, Hepatitis, anaphylaxis shock, others..), injury to bladder, rectum, possible need for laparoscopy/laparotomy or hysterectomy. The patient verbalized understanding and signed the consent. Instructions given the patient to schedule a 2 week postoperative appointment Orders: Orders AMB HCG Urine Test Today Z32.02 - Encounter for test, result negative Coding Level of Care Code Est Pt Level 3 (08301) Diagnoses Abnormal uterine bleeding (AUB) N93.9
[2023-08-07 09:06] VITALS: BP 105/62; BMI 25.9
== END 2023-08-07 09:25 | disposition home or self-care (01) ==
PROVIDERS: PCP Internal Medicine; Visit Provider Obstetrics & Gynecology
DX: Z32.02 Encounter for pregnancy test, result negative (principal); N93.9 Abnormal uterine and vaginal bleeding, unspecified
CPT/HCPCS: 99213

== ENCOUNTER → 2023-08-07 08:53 | Outpatient (BNVA) | payer OTHER, SELFPAY | PROVIDERS: PCP Internal Medicine; Visit Provider Obstetrics & Gynecology | DX: Z32.02 Encounter for pregnancy test, result negative (principal); N93.9 Abnormal uterine and vaginal bleeding, unspecified | CPT/HCPCS: 81025; 99212 ==

== ENCOUNTER 2023-09-07 06:11 | Day surgery (SDC) | payer OTHER, SELFPAY ==
[2023-09-05 10:26] VITALS: BMI 25.9
--- NOTE | 2023-09-05 12:05 | HO.ANESPROP2 ---
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) Constipation (Acute) Annual physical exam (Acute) Bilateral breast cysts (Acute) COVID-19 virus infection (Acute) Complex ovarian cyst (Acute) Allergic rhinitis (Acute) Alcohol abuse (Acute) Past Medical History Medical History Vomiting Tobacco abuse Alcohol abuse Allergic rhinitis Complex ovarian cyst Family History Family History Father Medical history unknown Mother Hypertension CVD (cardiovascular disease) Brother Brain cancer Maternal Aunt Myocardial infarction Maternal Grandmother Colon cancer Surgical History Surgical History History of tubal ligation Social History Social History Household Members: Children Housing: House Alcohol intake: former Patient Tobacco Use Status: Former Tobacco user Tobacco use type: Cigarette Years Smoked: quit 2017 e-Cigarette/Vaping Use: Never Used Second Hand Smoke Exposure: No Are you DNR?: No Advance Directives: No Advance Directives Information Provided: Yes Nutrition Risks: No Nutritional Risk Current occupational status: employed 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 Sexual orientation: Straight/Heterosexual Gender identity: Female Cognitive needs: No Hearing needs: No Vision needs: Yes Meds Allergies Allergy/AdvReac Type Severity Reaction Status Date / Time droperidol [From Inapsine] Allergy Severe ITCHING,SEI Verified 09/07/23 07:15 ZURE seafood Allergy Unknown ithcy Verified 09/07/23 07:15 Home Medications ?Medication ?Instructions ?Recorded ?Confirmed ?Last Taken ?Type multivitamin 1 tab PO DAILY 10/13/21 09/07/23 Unknown History Exam Height,Weight and Vital Signs: Height 4 ft 11 in Weight 58.06 kg Assessment and Plan Assessment Anesthesia Assessment: Chart Reviewed Documented by User: Nicki Hidalgo MD 09/07/23 08:33 PMFSH Past Medical History Medical History Vomiting Tobacco abuse Alcohol abuse Allergic rhinitis Complex ovarian cyst Family History Family History Father Medical history unknown Mother Hypertension CVD (cardiovascular disease) Brother Brain cancer Maternal Aunt Myocardial infarction Maternal Grandmother Colon cancer Family history of problems with anesthesia: No Surgical History Surgical History History of tubal ligation History of Problems with Anesthesia: No Social History Social History Household Members: Children Housing: House Alcohol intake: former Patient Tobacco Use Status: Former Tobacco user Tobacco use type: Cigarette Years Smoked: quit 2017 e-Cigarette/Vaping Use: Never Used Second Hand Smoke Exposure: No Are you DNR?: No Advance Directives: No Advance Directives Information Provided: Yes Nutrition Risks: No Nutritional Risk Current occupational status: employed 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 Sexual orientation: Straight/Heterosexual Gender identity: Female Cognitive needs: No Hearing needs: No Vision needs: Yes Meds Allergies Allergy/AdvReac Type Severity Reaction Status Date / Time droperidol [From Inapsine] Allergy Severe ITCHING,SEI Verified 09/07/23 07:15 ZURE seafood Allergy Unknown ithcy Verified 09/07/23 07:15 Home Medications ?Medication ?Instructions ?Recorded ?Confirmed ?Last Taken ?Type multivitamin 1 tab PO DAILY 10/13/21 09/07/23 Unknown History Exam Height,Weight and Vital Signs: Height 4 ft 11 in Weight 58.06 kg Vital Signs Temp Pulse Resp BP Pulse Ox O2 Del Method 09/07/23 07:55 97.9 F 89 18 115/72 99 Room Air Pertinent Lab Results Pertinent Lab Results: Lab Results 05/10/24 Range/Units 07:05 Urine Test NEGATIVE (NEGATIVE) Airway Mallampati Class: II TM Dist: >3cm Neck ROM: Full Loose/Missing/Broken Teeth: No (Denies broken, loose, missing teeth) Heart: RRR Lungs: CTAB Assessment and Plan Assessment Anesthesia Assessment: Anesthesia Plan Discussed and Chart Reviewed Final Anesthetic Review Family History of Problems with Anesthesia: No History of Problems with Anesthesia: No NPO: Yes ASA Class: II Final Preanesthetic Review: No Changes in Pt Med Stat, Meds/Allgs Chart Reviewed, Consent Obtained/Reviewed and Anes Risks/Benef Reviewed Patient Risk: Low Procedure Risk: Low Assessment/Block/Sedation in SS: Assess/Block/Sedation-SS Anesthetic Plan Anesthetic Plan: GA Disposition: Standard PACU
[2023-09-07 07:29] LABS: UPreg QC Valid YES; Urine Pregnancy NEGATIVE (NEGATIVE)
[2023-09-07 07:45] VITALS: BMI 25.2
[2023-09-07] MEDS: Lactated Ringers 1,000 ML 100 ML IVCONT (07:48)
[2023-09-07 07:55] VITALS: BP 115/72; PULSE 89; RESP 18; TEMP 36.6; O2SAT 99
--- NOTE | 2023-09-07 08:17 | MHC.SHP ---
Pre-Procedural Eval Section A - 24 Hr Update-Section A only Date of Service: 09/07/23 The patient is an INPATIENT: No Changes since office visit: No Cold of Flu in the past 2 weeks, No New Medical Problems, No Changes in Medication and No Patient answered all questions The patient has been examined within 24 hours of the surgical procedure. The History & Physical has been completed within 30 days and I have reviewed it.: Yes Section B - Complete if H&P > 30 days Chief Complaint: Abnormal uterine and vaginal bleeding, unspecified Allergies: Allergies Allergy/AdvReac Type Severity Reaction Status Date / Time droperidol [From Inapsine] Allergy Severe ITCHING,SEI Verified 09/07/23 07:15 ZURE seafood Allergy Unknown ithcy Verified 09/07/23 07:15 Plan Diagnosis/Plan: Unchanged I have reviewed the history and physical and performed a pertinent physical examination on my patient. No changes have occurred unless specified. Time Spent With Patient Time: Total time managing care of this patient today ____ minutes.
--- NOTE | 2023-09-07 09:16 | P.BOP_ITS ---
Brief Operative Note Date of Service: 09/07/23 Pre-op diagnosis: Abnormal uterine bleeding Possible endometrial polyp by ultrasound Post-op diagnosis: same (Normal endometrial cavity) Procedure: Hysteroscopy D&C Surgeon: Bari Tran MD Anesthesia: GLMA Was an Donor Services Team Leader used for this Procedure?: No Estimated blood loss (mL): 0 Pathology: other (Endometrial Scrapping.) Condition: stable Disposition: PACU
--- NOTE | 2023-09-07 09:17 | W.PM.OPN ---
Operative Note Operative Note Date of Service: 09/07/23 Narrative: Preop Diagnosis: Abnormal uterine bleeding, possible endometrial polyp by ultrasound Operation: Diagnostic Hysteroscopy, Dilataion & Curettage Post Op Diagnosis: Normal endometrial and endocervical cavity, no evidence of pathology QBL: Minimal Anesthesia: GLMA Surgeon: Bari Tran MD Electronics Processor: None Complication: None Pathology: Endometrial Scrapings Procedure: The patient was put in the dorsal lithotomy position, scrubbed, and draped in the usual manner. A sterile speculum was inserted in the patient's vagina. The anterior lip of the cervix was grasped with a single tooth tenaculum. The cervix was dilated up to 5 mm, then the scope was inserted in the patient's uterus. Inspection revealed normal endocervical & endometrial cavity with no evidence of pathology. The scope was taken out of the uterine cavity , then sharp curetting was carried on with no complications. At the end of the procedure, all instruments were taken out of the patient uterine and vaginal cavity. The single tooth tenaculum was removed and homeostasis was assured using pressure. The patient tolerated the procedure well and was transferred to the PACU in a stable condition.
[2023-09-07 09:26] VITALS: BP 114/71; PULSE 78; RESP 15; TEMP 37.1; O2SAT 100
[2023-09-07 09:31] VITALS: BP 116/71; PULSE 82; RESP 17; O2SAT 99
[2023-09-07 09:36] VITALS: BP 116/68; PULSE 89; RESP 17; O2SAT 100
[2023-09-07 09:41] VITALS: BP 121/99; PULSE 76; RESP 17; O2SAT 97
[2023-09-07 10:00] VITALS: BP 121/99; PULSE 70; RESP 17; TEMP 36.7; O2SAT 100
== END 2023-09-07 10:32 | disposition home or self-care (01) ==
PROVIDERS: Anesthesiology; PCP Internal Medicine; Visit Provider Obstetrics & Gynecology
PROC: 0UDB8ZZ Extraction of Endometrium, Via Natural or Artificial Opening Endoscopic (ICD-10-PCS; CPT 58558; principal; 2023-09-07 08:30)
DX: N93.9 Abnormal uterine and vaginal bleeding, unspecified (principal); D25.9 Leiomyoma of uterus, unspecified; N88.8 Other specified noninflammatory disorders of cervix uteri; Z88.8 Allergy status to other drugs, medicaments and biological substances; Z87.891 Personal history of nicotine dependence
CPT/HCPCS: 58558; 81025; 88305; J1100; J2250; J2405; J2704; J3010

== ENCOUNTER → 2023-09-07 06:11 | Outpatient (BNV) | payer OTHER, SELFPAY | PROVIDERS: PCP Internal Medicine; Visit Provider Obstetrics & Gynecology | DX: N93.9 Abnormal uterine and vaginal bleeding, unspecified (principal) | CPT/HCPCS: 58558 ==

== ENCOUNTER 2023-09-27 10:23 | Outpatient (AMB) | payer OTHER, SELFPAY ==
--- NOTE | 2023-09-27 10:55 | A.OFFVIS_ITS ---
Vital Signs 09/27/23 11:08 Height 4 ft 11 in Weight 128 lb BMI 25.9 BP 126/80 Intake Visit Reasons: Post Op D&C Allergies droperidol [From Inapsine] Allergy (Severe, Verified 09/07/23 07:15) ITCHING,SEIZURE HPI Comments Details: The patient is presenting post hysteroscopy D&C no complaints minimal vaginal bleeding no feverishness chills or abdominal pain. Hysteroscopy D&C: Intraoperative findings showed normal endometrial cavity with no evidence of pathology The pathology showed the following: Endometrium, curettage: Suggestive of chronic endometritis (see comment). COMMENT: Proliferative endometrium is present with spindled stromal limits, lymphoid aggregates and scattered eosinophils. The latter features may be associated with chronic endometritis, however only rare plasma cells are seen. Therefore, a diagnosis of chronic endometritis cannot be firmly established based on histologic findings in this material The following workup was done.: H&H= 12/37.4 TSH, prolactin, hCG, GC and chlamydia were negative. Co testing was done was negative. Mammogram was BI-RADS 2 Pelvic ultrasound showed the following: The uterus measures 9.3 x 5.0 x 6.0 cm in longitudinal by AP by transverse dimension. There are a few uterine fibroids noted, largest measuring approximately 2.7 cm. The endometrium is thickened measuring up to 1.2 cm. There is a 4 mm echogenic avascular focus within the endometrium which may represent a small polyp. Nabothian cysts are noted within the cervix. The left ovary measures approximately 3.1 x 1.4 x 2.5 cm and is normal. The right ovary measures approximately 2.0 x 1.0 x 1.2 cm and is also normal. There are no abnormal adnexal masses. There is no free fluid in the pelvis. [facility] Medical History (Updated 09/27/23 @ 11:16 by Bari Tran MD) Vomiting Tobacco abuse Alcohol abuse Allergic rhinitis Surgical History History of tubal ligation Family History Father Medical history unknown Mother Hypertension CVD (cardiovascular disease) Brother Brain cancer Maternal Aunt Myocardial infarction Maternal Grandmother Colon cancer Social History Household Members: Children Housing: House Alcohol intake: former Patient Tobacco Use Status: Former Tobacco user Tobacco use type: Cigarette Years Smoked: quit 2017 e-Cigarette/Vaping Use: Never Used Second Hand Smoke Exposure: No Current occupational status: employed 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 Sexual orientation: Straight/Heterosexual Gender identity: Female Cognitive needs: No Hearing needs: No Vision needs: Yes Review of Systems Const All systems reviewed & are unremarkable except as noted in HPI and below Reports as per HPI and Reports no additional complaints GI Reports no additional complaints Reports no additional complaints Physical Exam Vital Signs: Last Vital Signs BP 126/80 09/27/23 11:08 BMI result Body Mass Index 25.9 Assessment & Plan Assessment & Plan (1) Abnormal uterine bleeding (AUB): Code(s): N93.9 - Abnormal uterine and vaginal bleeding, unspecified Category: Medical Plan: Discussed with the patient the results of the work up done and options of treatment including Lysteda, BCP's, Mirena IUD, endometrial ablation and hysterectomy. All pros, cons, risks and benefits if each option was discussed with the patient and the patient decided to think about it and get back to us. All questions answered the patient verbalized understanding. (2) Fibroid, uterine: Code(s): D25.9 - Leiomyoma of uterus, unspecified Category: Medical Plan: Discussed with the patient the findings on pelvic ultrasound & the risk of myosarcoma; discussed with the patient the options of treatment including expectant management versus hysterectomy; the pros and cons, risks benefits of each approach were discussed with the patient including the fact that in cases of myosarcoma, surgical treatment can lead to early diagnosis and positively affects the prognosis; after further discussion, the patient decided to proceed with expectant management. Will repeat pelvic ultrasound periodically. Instructions given to patient to call in case any of the following occurs: pressure symptoms, abnormal uterine bleeding, pelvic pain; and to schedule a future office follow-up appointment for reassessment and to order a repeat ultrasound . All questions answered, the patient verbalized understanding and agreed with the plan . Coding Level of Care Code Est Pt Level 3 (14038) Diagnoses Abnormal uterine bleeding (AUB) N93.9 Fibroid, uterine D25.9
[2023-09-27 11:08] VITALS: BP 126/80; BMI 25.9
== END 2023-09-27 13:06 | disposition home or self-care (01) ==
LOC: HO.HWS 10:23
PROVIDERS: PCP Internal Medicine; Visit Provider Obstetrics & Gynecology
DX: N93.9 Abnormal uterine and vaginal bleeding, unspecified (principal); D25.9 Leiomyoma of uterus, unspecified
CPT/HCPCS: 99213

== ENCOUNTER → 2023-09-27 10:23 | Outpatient (BNVA) | payer OTHER, SELFPAY | PROVIDERS: PCP Internal Medicine; Visit Provider Obstetrics & Gynecology | DX: N93.9 Abnormal uterine and vaginal bleeding, unspecified (principal); D25.9 Leiomyoma of uterus, unspecified | CPT/HCPCS: 99212 ==

== ENCOUNTER 2024-01-02 04:13 | Emergency (ER) | payer OTHER, SELFPAY ==
--- NOTE | 2024-01-02 | ECG_ITS ---
Test Reason : CP Blood Pressure : / mmHG Vent. Rate : 110 BPM Atrial Rate : 110 BPM P-R Int : 128 ms QRS Dur : 078 ms QT Int : 330 ms P-R-T Axes : 077 031 059 degrees QTc Int : 446 ms Sinus tachycardia Otherwise normal ECG When compared with ECG of 04-SEP-2019 16:24, No significant change was found Referred By: Generic ED Physician Electronically Signed By:PETEY HERZOG
[2024-01-02 04:23] VITALS: BP 143/88; PULSE 105; RESP 18; TEMP 37; O2SAT 100; BMI 27.3
[2024-01-02 04:36] LABS: Basophils Percent Auto 0.4 % (0-2); Eosinophils Percent Auto 0.1 % (0-4); Hematocrit 37.3 % (37.0-47.0); Hemoglobin 12.4 g/dl (12.0-16.0); Imm Gran Abs Auto 0.02 X10*3/uL (0.00-0.03); Imm Gran Pct Auto 0.2 % (0.0-0.4); Lymphocytes Absolute Auto 1.5 X10*3/uL (1.2-4.9); Lymphocytes Percent Auto 18.1 % (20-40); MANUAL DIFF FLAG NO; Mean Corpuscular HGB Conc 33.2 g/dl (31.0-35.0); Mean Corpuscular Volume 81.3 fL (80.0-98.0); Mean Platelet Volume 9.9 fL (9.4-12.3); Monocytes Absolute Auto 0.5 X10*3/uL (0.1-1.2); Monocytes Percent Auto 5.6 % (2-11); Neutrophils Absolute Auto 6.2 x10*3/uL (2.0-8.3); Neutrophils Percent Auto 75.6 % (45-73); Platelet Count 348 X10*3/uL (160-400); Red Blood Count 4.59 X10*6/uL (4.20-5.50); Red Cell Distribution Width 13.4 % (11.0-16.0); White Blood Count 8.2 X10*3/uL (4.8-10.8)
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
[2024-01-02 04:57] LABS: Anion Gap 13 (12-20); Blood Urea Nitrogen 9 mg/dL (9-16); Calcium 9.2 mg/dL (8.4-10.2); Carbon Dioxide 18 mmol/L (22-29); Chloride 109 mmol/L (96-108); Creatinine Clr Calc Pharmacy 89.3; Estimated Glomerular Filt Rate > 60; Glucose Random 119 mg/dL (60-115); Potassium 3.6 mmol/L (3.3-5.1); Sodium 136 mmol/L (135-145)
[2024-01-02 04:58] LABS: Troponin-I High Sensitivity < 2.7 ng/L (<3.5-17.0)
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
[2024-01-02 05:52] VITALS: BP 120/76; PULSE 89; RESP 16; TEMP 36.8; O2SAT 98
== END 2024-01-02 05:52 | disposition home or self-care (01) ==
PROVIDERS: Emergency Provider Emergency Medicine; PCP Internal Medicine
DX: R00.2 Palpitations (principal); R07.89 Other chest pain; F41.9 Anxiety disorder, unspecified
CPT/HCPCS: 36415; 80048; 84443; 84484; 85025; 93005; 99283; 99285

== ENCOUNTER 2024-07-08 08:50 | Outpatient (REF) | payer OTHER, SELFPAY | END 2024-07-08 08:51 | disposition home or self-care (01) | LOC: HO.MAMMO 08:50 | PROVIDERS: PCP Internal Medicine; Visit Provider Internal Medicine | DX: Z12.31 Encounter for screening mammogram for malignant neoplasm of breast (principal) | CPT/HCPCS: 77063; 77067 ==

== ENCOUNTER → 2024-07-08 09:00 | Outpatient (BNV) | payer OTHER, SELFPAY | PROVIDERS: PCP Internal Medicine; Visit Provider Internal Medicine | DX: Z12.31 Encounter for screening mammogram for malignant neoplasm of breast (principal) | CPT/HCPCS: 77063; 77067 ==

== ENCOUNTER 2024-07-30 12:29 | Outpatient (REF) | payer OTHER, SELFPAY ==
--- NOTE | ~2024-07-30 | US_ITS ---
EXAMINATION: MM DIAGNOSTIC DIGITAL BREAST TOMOSYNTHESIS, LEFT Limited left breast ultrasound. CLINICAL INFORMATION: Call back from screening for focal asymmetry in the upper outer left breast. COMPARISON: Mammography: [facility] on PACS. TECHNIQUE: Digital breast tomosynthesis is performed in both the craniocaudal and mediolateral oblique views along with computer-aided detection (CAD). Synthesized 2D images are generated from the tomosynthesis. FINDINGS: The breasts are heterogeneously dense, which may obscure small masses (ACR BI-RADS breast composition Category c). Circumscribed oval mass in the upper outer breast posterior depth persist on additional imaging projections. No suspicious calcifications or other abnormal findings. Targeted color Doppler ultrasound demonstrates a simple cyst at 2:00 7 cm from the nipple measuring 15 x 10 x 13 mm which correlates with the circumscribed oval mass on mammography and is benign. US/US breast LT limited mamm only IMPRESSION: Simple cyst on ultrasound. Benign. ASSESSMENT: BI-RADS BI-RADS 2 - Benign Findings RECOMMENDATION: 1 year F/U Results were provided to the patient at time of visit by the technologist. This patient's information was entered into a reminder system with a target due date for their next mammogram. Electronically signed by: Aylin Cruz DO 07/30/2024 01:34 PM EDT
== END 2024-07-30 12:30 | disposition home or self-care (01) ==
LOC: HO.MAMMO 12:29
PROVIDERS: Visit Provider Internal Medicine
DX: N63.21 Unspecified lump in the left breast, upper outer quadrant (principal)
CPT/HCPCS: 76642; 77061; 77065

== ENCOUNTER → 2024-07-30 13:00 | Outpatient (BNV) | payer OTHER, SELFPAY | PROVIDERS: Visit Provider Internal Medicine | DX: R92.8 Other abnormal and inconclusive findings on diagnostic imaging of breast (principal) | CPT/HCPCS: 76642; 77061; 77065 ==

== ENCOUNTER 2024-09-10 09:02 | Outpatient (AMB) | payer OTHER, SELFPAY ==
--- NOTE | 2024-09-10 09:27 | MHC.OFFVIS ---
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 No complaints. Last Pap/HPV was negative in 06/23 Last Mammogram was BI-RADS 2 in 08/22 No previous screening [facility] Medical History Vomiting Tobacco abuse Alcohol abuse Allergic rhinitis Surgical History History of tubal ligation Family History Father Medical history unknown Mother Hypertension CVD (cardiovascular disease) Brother Brain cancer Maternal Aunt Myocardial infarction Maternal Grandmother Colon cancer Social History Household Members: Children Housing: House Alcohol intake: former Patient Tobacco Use Status: Former Tobacco user Tobacco use type: Cigarette Years Smoked: quit 2017 e-Cigarette/Vaping Use: Never Used Second Hand Smoke Exposure: No Current occupational status: employed 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 Sexual orientation: Straight/Heterosexual Gender identity: Female Cognitive needs: No Hearing needs: No Vision needs: Yes Female Reproductive History Menstrual control method: permanent sterilization Date of last pap smear: 06/26/23 Date of Mammogram: 07/30/24 Review of Systems Const All systems reviewed & are unremarkable except as noted in HPI and below Card Reports as per HPI Resp Reports as per HPI GI Reports as per HPI and Reports no additional complaints Reports as per HPI Physical Exam Vital Signs: Last Vital Signs BP 122/72 09/10/24 09:41 BMI result Body Mass Index 27.5 Const General: cooperative, healthy appearing and comfortable Chest Chest palpation & inspection: normal inspection of the chest and normal palpation of entire chest wall Breast/axilla inspection: normal inspection of the breasts and normal inspection of the axillae Breast/axilla palpation: normal palpation of the breasts, normal palpation of the axillae and no axillary lymphadenopathy Resp Effort & Inspection: normal respiratory effort Auscultation: clear to auscultation bilaterally Percussion: percussion normal Cardio Palpation: normal PMI Rate: regular rate Rhythm: regular rhythm Heart sounds: no murmurs and no rubs Peripheral pulses: Peripheral pulses 2+ throughout GI Inspection: Yes normal to inspection Palpation (GI): Soft to palpation, nontender, no guarding, not rigid and No hepatosplenomegaly present Percussion: Yes normal to percussion Auscultation: normal bowel sounds Rectal Exam - Female: deferred General: Yes bladder normal to palpation External Female Exam: No lesion Speculum Exam - Vagina: normal appearance of the vagina, normal palpation, normal vaginal discharge and not erythematous Speculum Exam - Cervix: normal appearance of the cervix and normal palpation Bimanual exam- vagina & uterus: normal bimanual exam, normal palpation, uterine size normal, bladder normal to palpation, consistency normal and normal palpation Bimanual Exam- Adnexa, other: normal adnexae, no masses and no tenderness Assessment & Plan Assessment & Plan (1) Well woman exam: Code(s): Z01.419 - Encounter for gynecological examination (general) (routine) without abnormal findings Category: Medical Plan: Cotesting not indicated this year. Instructions given the patient to schedule next screening Mammogram in 08/23 Will refer to GI for screening colonoscopy Counseled the patient about the recommended dietary allowance of 1000 mg of Calcium & 600 IU of vitamin D. The patient was instructed to perform monthly self-breast exams and to schedule an annual exam in a year; All questions answered and the patient verbalized understanding. Instructed the patient to schedule annual exam in a year Orders: Referrals Gastroenterology Referral Z12.11 - Encounter for screening for malignant neoplasm of colon Coding Level of Care Code Est Pt Prev Care 40-64y(17829) Diagnoses Well woman exam Z01.419
[2024-09-10 09:41] VITALS: BP 122/72; BMI 27.5
== END 2024-09-10 09:54 | disposition home or self-care (01) ==
PROVIDERS: Visit Provider Obstetrics & Gynecology
DX: Z01.419 Encounter for gynecological examination (general) (routine) without abnormal findings (principal)
CPT/HCPCS: 99396; 99459

== ENCOUNTER → 2024-09-10 09:02 | Outpatient (BNVA) | payer OTHER, SELFPAY | PROVIDERS: Visit Provider Obstetrics & Gynecology | DX: Z01.419 Encounter for gynecological examination (general) (routine) without abnormal findings (principal) | CPT/HCPCS: 99396; 99459 ==

== ENCOUNTER 2024-09-26 12:39 | Outpatient (AMB) | payer OTHER, SELFPAY ==
[2024-09-26 12:57] VITALS: BP 118/62; PULSE 90; O2SAT 98; BMI 27.7
--- NOTE | 2024-09-26 12:57 | A.OFFPC_ITS ---
Vital Signs 09/26/24 12:57 Height 4 ft 11 in Weight 137 lb BMI 27.7 BP 118/62 Blood Pressure Location Lt brachial Position Sitting Pulse 90 Pulse Source Pulse Oximeter Pulse Oximetry (%) 98 Oxygen Delivery Method Room Air Intake Visit Reasons: Annual PE Allergies droperidol [From Inapsine] Allergy (Severe, Verified 09/26/24 12:57) ITCHING,SEIZURE Medication List - Last Reconciled 09/26/24 by Jelly Baig MD multivitamin 1 tab PO DAILY Tobacco use date assessed: 09/26/24 Dental Screening Dental Screen Date: 09/26/24 Did you have a dental visit in the last 12 months?: Yes Did you have a dental problem in the last 6 months where you did not have access to dental care?: No Was dental information given to patient?: Patient has dentist [facility] Medical History Vomiting Tobacco abuse Alcohol abuse Allergic rhinitis Surgical History History of tubal ligation Family History Father Medical history unknown Mother Hypertension CVD (cardiovascular disease) Brother Brain cancer Maternal Aunt Myocardial infarction Maternal Grandmother Colon cancer Social History (Updated 09/26/24 @ 13:30 by Jelly Baig MD) Household Members: Children Housing: House Alcohol intake: former Comment: STopped alcohol 2019 Patient Tobacco Use Status: Former Tobacco user Tobacco use type: Cigarette Years Smoked: quit 2017 e-Cigarette/Vaping Use: Never Used Second Hand Smoke Exposure: No Current occupational status: employed 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 1. Little interest or pleasure in doing things: not at all 2. Feeling down, depressed, or hopeless: not at all 3. Trouble falling or staying asleep, or sleeping too much: not at all 4. Feeling tired or having little energy: not at all 5. Poor appetite or overeating: not at all 6. Feeling bad about yourself - or that you are a failure or have let yourself or your family down: not at all 7. Trouble concentrating on things, such as reading the newspaper or watching television: not at all 8. Moving or speaking so slowly that other people could have noticed. Or the opposite - being so fidgety or restless that you have been moving around a lot more than usual: not at all 9. Thoughts that you would be better off or of hurting yourself in some way: not at all Total score: 0 Depression Screening Interpretation: Negative Depression Screening Done: Yes Source: Developed by Drs. Natan Barkley, Marlene Meyers, Morteza Art and colleagues, with an educational jana from [employer]. Thrive Questionnaire Date Thrive assessed: 09/26/24 I am a: Patient What is your living situation today?: I have a steady place to live Within the past 12 months, did the food you bought not last and you didn't have the money to get more?: Never true Within the past 12 months, did you worry whether your food would run out before you got money to buy more?: Never true Do you have trouble paying for medicines?: No Do you have trouble getting transportation to medical appointments?: No Do you have trouble paying your heating and electricity bill?: No Do you have trouble taking care of your child, family member or friend?: No Do you have trouble with day-to-day activities such as bathing, preparing meals, shopping, managing finances, etc.?: No Are you currently unemployed and looking for a job?: No Are you interested in more education?: No Please select the resources that you would like help with: None Currently or been in a relationship where the following occur: No concerns reported THRIVE Score: 0 AUDIT C Alcohol Use Questionnaire (AUDIT-C) 1. How often do you have a drink containing alcohol?: Never 3. How often do you have six or more drinks on one occasion?: Never Total Score: 0 KATI-7 AMB Questionnaire KATI-7 Date KATI - 7 assessed: 09/26/24 Feeling nervous, anxious, or on edge: 0 = Not at all Not being able to stop or control worryin = Not at all Worrying too much about different things: 0 = Not at all Trouble relaxin = Not at all Being so restless that it is hard to sit still: 0 = Not at all Becoming easily annoyed or irritable: 0 = Not at all Feeling afraid as if something awful might happen: 0 = Not at all Total KATI-7 score (0-4 normal; 5-9 mild; 10-14 moderate; 15-21 severe): 0 Source: Developed by Drs. Natan Barkley, Marlene Meyers, Morteza Art and colleagues, with an educational jana from [employer]. Review of Systems Const Denies poor appetite and Denies weakness Eyes Denies no additional complaints ENT Reports Normal hearing present, Denies dizziness, Denies nasal congestion, Denies tinnitus and Denies sore throat Card Denies chest pain, Denies syncope, Denies rapid heart rate and Denies dyspnea Resp Denies cough and Denies dyspnea GI Denies change in stool character, Reports constipation, Denies diarrhea, Denies nausea and Denies vomiting Denies urinary frequency, Denies difficulty voiding and Denies dysuria Neuro Reports Normal hearing present, Denies confusion, Denies dizziness, Denies syncope and Denies weakness Psych Denies confusion Physical exam (Primary Care) Vital Signs: Last Vital Signs Pulse 90 09/26/24 12:57 BP 118/62 09/26/24 12:57 Pulse Ox 98 09/26/24 12:57 Oxygen Delivery Method Room Air 09/26/24 12:57 BMI result Body Mass Index 27.7 Tobacco/Smoking Status: Tobacco use Status Tobacco use date assessed 09/26/24 09/26/24 13:02 Patient Tobacco Use Status Former Tobacco user 09/26/24 13:30 Tobacco use type Cigarette 09/26/24 13:30 e-Cigarette/Vaping Use Never Used 09/26/24 13:30 PHQ-9: PHQ-9 Score PHQ-9: Total score 0 09/26/24 13:39 Depression Screening Interpretation: Negative Thrive Assessment: Date of Thrive Assessment Date Thrive assessed 09/26/24 09/26/24 13:02 Currently or been in a relationship where the following occur: No concerns reported Const General: No confusion Orientation/consciousness: No confusion HENMT Head: Yes normocephalic Ears: external ears normal and TM's normal bilaterally Face and sinus: Yes normal facial exam Mouth: moist mucous membranes Throat: Yes tonsils normal Eyes Conjunctivae: conjunctivae normal Pupils: Equal, round and reactive pupils present and Pupil accommodation reflex normal Direct Ophthalmoscopy: normal light reflex Neck Neck: No lymphadenopathy Thyroid: Thyroid normal Chest Chest palpation & inspection: normal inspection of the chest Resp Effort & Inspection: normal respiratory effort and no audible wheezes Auscultation: clear to auscultation bilaterally, no crackles, no wheezes and lung sounds not diminished Cardio Rate: regular rate Rhythm: regular rhythm Peripheral pulses: radial pulses present and dorsalis pedis present GI Palpation (GI): no masses Auscultation: normal bowel sounds and normoactive bowel sounds Rectal Exam - Female: deferred Skin General skin exam: no rashes or lesions noted Rashes: no rashes Neuro General: No confusion Cranial nerves: Yes Equal, round and reactive pupils present and Yes Normal hearing present Cognition (Neuro): normal cognition Gait exam (Neuro): Normal gait present Motor exam (neuro): 5/5 motor strength present throughout Deep tendon reflexes (DTR's): Right brachioradialis reflex intensity grade: 2+, Left brachioradialis reflex intensity grade: 2+, Right patellar reflex intensity grade: 2+ and Left patellar reflex intensity grade: 2+ Extrem General: No edema Immunizations Tenivac (PF) 5 Lf unit-2 Lf unit/0.5 mL intramuscular suspension Performing Provider: Jelly Baig MD [facility] Administered by: Asuncion Chavez CMA on 09/26/24 13:44 Dose Route Admin Location Dispensed Lot Number Expiration Date NDC Accounts Receivable Supervisor 0.5 mL IM Left Deltoid 0.5 mL [id number] 06/28/26 58724-207-06 [employer] VIS Given Date VIS Provided VIS Publication Date 09/26/24 Single Vaccine 20 Eligibility Eligibility Date Funding Source Not [facility] Eligible 09/26/24 Private Coding Level of Care Code Est Pt Prev Care 40-64y(32728) Diagnoses Annual physical exam Z00.00 Cervical cancer screening Z12.4 Assessment & Plan Assessment & Plan (1) Annual physical exam: Code(s): Z00.00 - Encounter for general adult medical examination without abnormal findings Category: Medical (2) Cervical cancer screening: Code(s): Z12.4 - Encounter for screening for malignant neoplasm of cervix Category: Medical Plan History of Present Illness The patient is a 44-year-old female presenting for a physical examination and follow-up. Her medical history includes being overweight, with a noted increase in weight from 128 pounds in August 2022 to 137 pounds recently. She has a history of alcohol abuse, which she ceased six years ago upon medical advice. Anxiety is part of her medical history, particularly following an ED visit in December for atypical chest pain. The patient underwent an endometrial curettage in August 2023, indicating chronic endometriosis. Her blood work in December 2023 returned normal results, with blood sugar at 119 and cholesterol last measured in 2021. Her family history is significant for heart disease (mother), brain cancer (brother), and colon cancer (grandmother), as well as a heart attack (aunt). She reports no recent surgeries or new diagnoses beyond those specified. Health Maintenance - Tetanus vaccination due, last given in 2013 - Mammogram performed in July 2024 - Last eye examination conducted a couple of months ago - Blood work planned for upcoming week with fasting Social History - Ceased alcohol consumption six years ago - No reported use of tobacco or recreational drugs - No new employment or housing details discussed - Weight management discussed, with recent increase noted Review of Systems - Constitutional: Denies fever, night sweats, weight loss - Respiratory: Denies shortness of breath, cough - Cardiovascular: Denies chest pain, palpitations - Gastrointestinal: Denies nausea, vomiting, diarrhea, constipation - Genitourinary: Reports waking up once nightly to urinate - Neurological: Denies syncope, dizziness Physical Exam General: Cooperative, healthy appearing, comfortable, no acute distress and well developed Orientation: Patient oriented x3 Limitations: No limitations Head: Normal to inspection Ears: Hearing grossly normal bilaterally Nose: Normal external nose present Face and sinus: Normal facial exam Eyes: Appearance normal, both eyes and all related structures Neck: Normal visual inspection and Yes full ROM Respiratory: Normal respiratory effort and able to speak in complete sentences. Clear to auscultation bilaterally Cardiovascular: Regular rate and rhythm. Normal S1 and S2 GI: Normal to inspection. Soft to palpation and nontender Skin: No rashes or lesions noted Neuro: Patient oriented x3 Extremities: Normal to inspection Results - Labs: Blood work in December 2023 within normal limits - Tests: Eye exam results recent and satisfactory - Procedures: Mammogram completed July 2024 Plan We emphasized the importance of lifestyle modifications and preventive health measures for this patient. Weight management is crucial due to recent changes. She has ceased alcohol consumption and does not use tobacco or drugs. We will monitor her due to her family history of heart disease. She agreed to renew her tetanus vaccination. Blood work is planned with fasting for the upcoming week. We will follow up based on the results. A recent mammogram was performed, and no acute issues were noted today. Patient was informed and verbally consented to the use of an ambient scribe for clinic note documentation during this visit. Discussion Notes I discussed with the patient the importance of continued weight management and maintaining a healthy lifestyle to mitigate her risks given her family history of cardiovascular and cancer-related diseases. We reviewed the need for periodic screening, including the tetanus booster due now and the blood work scheduled. She received guidance on the benefits of current vaccinations and screening tests. We reiterated the value of her decision to stop alcohol use and addressed any potential concerns about her anxiety management. Follow-up for blood work results and any notable changes in her conditions were advised. Patient Instructions - Continue with weight management strategies - Schedule and obtain blood work after fasting - Update tetanus vaccination as planned - Maintain a healthy lifestyle and diet - Monitor any changes or symptoms - Follow up for results of upcoming tests Orders: Orders Complete Blood Count Auto Diff Today Z00.00 - Encounter for general adult medical examination without abnormal findings Free T4 (Free Thyroxine) Today Z00.00 - Encounter for general adult medical examination without abnormal findings Lipid Panel Today E78.00 - Pure hypercholesterolemia, unspecified, Z00.00 - Encounter for general adult medical examination without abnormal findings Comprehensive Met. Panel Today Z00.00 - Encounter for general adult medical examination without abnormal findings Thyroid Stimulating Hormone Today Z00.00 - Encounter for general adult medical examination without abnormal findings Vitamin B12 and Folate Today Z00.00 - Encounter for general adult medical examination without abnormal findings Vitamin D 25-OH Total Today Z00.00 - Encounter for general adult medical e xamination without abnormal findings Td Immunization Today Z23 - Encounter for immunization
== END 2024-09-26 13:50 | disposition home or self-care (01) ==
LOC: HO.HMCH 12:40
PROVIDERS: PCP Internal Medicine; Visit Provider Internal Medicine
DX: Z00.00 Encounter for general adult medical examination without abnormal findings (principal); Z12.4 Encounter for screening for malignant neoplasm of cervix; Z23 Encounter for immunization

== ENCOUNTER → 2024-09-26 12:39 | Outpatient (BNVA) | payer OTHER, SELFPAY | PROVIDERS: PCP Internal Medicine; Visit Provider Internal Medicine | DX: Z00.00 Encounter for general adult medical examination without abnormal findings (principal); Z23 Encounter for immunization | CPT/HCPCS: 90471; 90714; 99396 ==

== ENCOUNTER 2024-10-04 07:27 | Outpatient (REF) | payer OTHER, SELFPAY ==
[2024-10-04 07:47] LABS: MANUAL DIFF FLAG NO
[2024-10-04 08:53] LABS: Basophils Percent Auto 0.7 % (0-2); Eosinophils Absolute Auto 0.1 X10*3/uL (0.0-0.4); Eosinophils Percent Auto 1.7 % (0-4); Hematocrit 38.1 % (37.0-47.0); Hemoglobin 12.4 g/dl (12.0-16.0); Imm Gran Abs Auto 0.01 X10*3/uL (0.00-0.03); Imm Gran Pct Auto 0.2 % (0.0-0.4); Lymphocytes Absolute Auto 2.1 X10*3/uL (1.2-4.9); Lymphocytes Percent Auto 34.9 % (20-40); Mean Corpuscular HGB Conc 32.5 g/dl (31.0-35.0); Mean Platelet Volume 9.9 fL (9.4-12.3); Monocytes Absolute Auto 0.6 X10*3/uL (0.1-1.2); Monocytes Percent Auto 10.5 % (2-11); Neutrophils Absolute Auto 3.1 x10*3/uL (2.0-8.3); Platelet Count 402 X10*3/uL (160-400); Red Blood Count 4.59 X10*6/uL (4.20-5.50); Red Cell Distribution Width 13.2 % (11.0-16.0); White Blood Count 5.9 X10*3/uL (4.8-10.8)
[2024-10-04 09:45] LABS: Alanine Aminotransferase 18 U/L (0-31); Alkaline Phosphatase 70 U/L (39-117); Anion Gap 9 (12-20); Aspartate Amino Transferase 19 U/L (5-31); Bilirubin Total 0.3 mg/dL (0.0-1.0); Blood Urea Nitrogen 7 mg/dL (9-16); Calcium 8.9 mg/dL (8.4-10.2); Carbon Dioxide 26 mmol/L (22-29); Chloride 109 mmol/L (96-108); Cholesterol 180 mg/dL (<200); Estimated Glomerular Filt Rate > 60; Glucose Random 84 mg/dL (60-115); HDL Cholesterol 79 mg/dL (>40); LDL Cholesterol Calculated 91 mg/dL (<100); Sodium 140 mmol/L (135-145); Total Protein 7.6 g/dL (6.5-8.0); Triglycerides 54 mg/dL (<150)
[2024-10-04 09:52] LABS: Free T4 (Free Thyroxine) 1.06 ng/dL (0.71-1.85); Thyroid Stimulating Hormone 1.15 uIU/mL (0.32-4.0); Vitamin D 25-OH Total 24.2 ng/mL (>30)
[2024-10-04 09:58] LABS: Folate 10.8 ng/mL (> or = 4.0); Vitamin B12 346 pg/mL (200-900)
== END 2024-10-04 07:28 | disposition home or self-care (01) ==
LOC: HO.LAB 07:27
PROVIDERS: PCP Internal Medicine; Visit Provider Internal Medicine
DX: Z00.00 Encounter for general adult medical examination without abnormal findings (principal); E78.00 Pure hypercholesterolemia, unspecified
CPT/HCPCS: 36415; 80053; 80061; 82306; 82607; 82746; 84439; 84443; 85025

== ENCOUNTER 2025-03-17 09:27 | Outpatient (AMB) | payer OTHER, SELFPAY ==
--- NOTE | 2025-03-17 09:47 | A.OFFVIS_ITS ---
Vital Signs 03/17/25 09:52 Height 4 ft 11 in Weight 141 lb 1.533 oz BMI 28.5 BP 123/88 Blood Pressure Location Lt brachial Position Sitting Pulse 91 Intake Visit Reasons: colo screen Intake Note: New patient in office today for colonoscopy screening. CC: Patient denies having any GI symptoms or concerns today. Psychiatric Social Worker Supervisor Required: No Accompanied by: Self / Same As Patient Allergies droperidol (From Inapsine) Allergy (Severe, Verified 03/17/25 09:53) ITCHING,SEIZURE HPI HPI colo screen: Details: 44-year-old female here for preprocedural meeting to discuss a screening colonoscopy. She is referred by Jelly Baig. PMX Alcohol abuse Allergic rhinitis - pt denies Smoker - pt quits 4-5 years ago Constipation Positive tuberculosis test * SURGICAL HISTORY Tubal ligation * ALLERGIES Droperidol * [facility] LABS: Laboratory Tests 10/04/24 07:45 WBC 5.9 Hgb 12.4 Hct 38.1 Plt Count 402 H Estimated GFR > 60 Total Bilirubin 0.3 AST 19 ALT 18 Alkaline Phosphatase 70 TSH 1.15 Free T4 1.06 TODAY'S VISIT This is her first colonoscopy. No bowel or upper GI problems except occasional CIC No anes or sed problems. No cardiac or respiratory problems She had a past + mantoux text, asx, ordered T spot. No FHX CRC or polyps. PFSH Medical History Allergic rhinitis COVID-19 virus infection Cervical cancer screening Well woman exam Annual physical exam Vomiting Tobacco abuse Alcohol abuse Surgical History History of tubal ligation Family History Father Medical history unknown Mother Hypertension CVD (cardiovascular disease) Brother Brain cancer Maternal Aunt Myocardial infarction Maternal Grandmother Colon cancer Social History Household Members: Children Housing: House Alcohol intake: former Comment: STopped alcohol 2018 Patient Tobacco Use Status: Former Tobacco user Tobacco use type: Cigarette Years Smoked: quit 2017 e-Cigarette/Vaping Use: Never Used Second Hand Smoke Exposure: No Current occupational status: employed 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 Sexual orientation: Straight/Heterosexual Gender identity: Female Cognitive needs: No Hearing needs: No Vision needs: Yes Review of Systems Const Denies fatigue, Denies fever(s), Denies night sweats, Denies poor appetite and Denies weight loss Eyes Details: Glasses Reports requires corrective lenses ENT Reports Normal hearing present, Denies dysphagia, Denies odynophagia, Denies throat swelling and Denies tongue swelling Card Reports no additional complaints Resp Reports no additional complaints GI Details: Denies abdominal pain, Denies melena, Denies bloating, Denies hematochezia, Reports constipation, Denies GI cramping, Denies dysphagia, Denies excessive flatus, Denies early satiety, Denies heartburn, Denies diarrhea, Denies nausea, Denies odynophagia, Denies vomiting and Denies hematemesis Skin/Breast Denies pruritus, Denies lesions, Denies rash and Denies jaundice Neuro Reports Normal hearing present and Denies Abnormal speech present Endo Denies fatigue Aller/Immun Denies throat swelling and Denies tongue swelling Physical Exam Vital Signs: Last Vital Signs Pulse 91 03/17/25 09:52 BP 123/88 03/17/25 09:52 BMI result Body Mass Index 28.5 Const General: cooperative, no acute distress, well developed and well groomed Nutritional Appearance: well nourished and overweight Orientation/consciousness: oriented to person, oriented to place and oriented to time Limitations: No language barrier HEENT Head: Yes normocephalic and Yes atraumatic Eyes General: appearance normal, both eyes and all related structures Pupils: Equal, round and reactive pupils present Neck Neck: Yes normal visual inspection and Yes no lymphadenopathy Thyroid: Thyroid normal Resp Effort & Inspection: normal respiratory effort and able to speak in complete sentences Auscultation: clear to auscultation bilaterally Cardio Rate: regular rate Rhythm: regular rhythm Heart sounds: Normal, physiologic split S2 sound present Peripheral pulses: radial pulses present and posterior tibial pulses present GI Inspection: No distended, No Abdominal panniculus present and Yes obesity Palpation (GI): Soft to palpation, nontender, no guarding, not rigid and No hepatosplenomegaly present Percussion: Yes normal to percussion Auscultation: normal bowel sounds Rectal Exam - Female: deferred Skin General skin exam: no rashes or lesions noted, turgor normal, skin not dry, no jaundice, No spider nevi and no striae Rashes: no rashes Nails: normal Neuro General: oriented to person, oriented to place and oriented to time Cranial nerves: Yes Equal, round and reactive pupils present and Yes Normal hearing present Speech: No Abnormal speech present Extrem General: Yes normal to inspection, No clubbing, No cyanosis and No edema Psych Appearance: grossly normal and well kempt Mental Status: mental status grossly normal Speech and movement: Normal speech and movement present Affect: normal affect Attitude: cooperative Thought process: Normal thought process present and not confabulating Thought content: Normal thought content present Insight: Good insight present (Psych) Judgement: Good judgement present (Psych) Assessment & Plan Assessment & Plan (1) Pre-op examination: Code(s): Z01.818 - Encounter for other preprocedural examination Category: Medical (2) Alcohol abuse: Code(s): F10.10 - Alcohol abuse, uncomplicated Category: Social Hx (3) Positive TB test: Comment: 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 This doesnt mean she has active infection. She received treatment for latent TB in past to help prevent reemergence of infection Code(s): R76.11 - Nonspecific reaction to tuberculin skin test without active tuberculosis Category: Medical Plan This is her first colonoscopy. No bowel or upper GI problems except occasional CIC No anes or sed problems. No cardiac or respiratory problems She had a past + mantoux text, asx, ordered T spot. No FHX CRC or polyps Orders: Orders T Spot TB Today R76.11 - Nonspecific reaction to tuberculin skin test without active tuberculosis Referrals GI Procedure Notification F10.10 - Alcohol abuse, uncomplicated, R76.11 - Nonspecific reaction to tuberculin skin test without active tuberculosis, Z01.818 - Encounter for other preprocedural examination Medications: New sodium,potassium,mag sulfates 17.5-3.13-1.6 gram (Suprep Bowel Prep Kit) 480 mL orally; FOR COLONOSCOPY PREP 354 mL 0RF Coding Level of Care Code New Pt Level 3 (28151) Diagnoses Pre-op examination Z01.818 Alcohol abuse F10.10 Positive TB test R76.11
[2025-03-17 09:52] VITALS: BP 123/88; PULSE 91; BMI 28.5
== END 2025-03-17 10:18 | disposition home or self-care (01) ==
LOC: HO.HGI 09:28
PROVIDERS: PCP Internal Medicine; Visit Provider Nurse Practitioner
DX: Z01.818 Encounter for other preprocedural examination (principal); Z12.11 Encounter for screening for malignant neoplasm of colon; F10.10 Alcohol abuse, uncomplicated; R76.11 Nonspecific reaction to tuberculin skin test without active tuberculosis
CPT/HCPCS: 99203

== ENCOUNTER → 2025-03-17 09:27 | Outpatient (BNVA) | payer OTHER, SELFPAY | PROVIDERS: PCP Internal Medicine; Visit Provider Nurse Practitioner | DX: Z01.818 Encounter for other preprocedural examination (principal); F10.10 Alcohol abuse, uncomplicated; R76.11 Nonspecific reaction to tuberculin skin test without active tuberculosis | CPT/HCPCS: 99202 ==